=== PATIENT | female | born 1945 | race Caucasian/White ===

== ENCOUNTER 2019-06-15 15:15 | Inpatient (IN) | payer MEDICARE ==
[~2019-06-15] VITALS: Ht 157.5 cm; Wt 93.2 kg
[2019-06-15] MEDS ORDERED: NS IV 1000 ML 1,000 ML IV SCH (15:47)
[2019-06-15] MEDS ORDERED: NS (IVPB) 250 ML ONE (15:54)
[2019-06-15] MEDS ORDERED: VANCOMYCIN 1000 MG/VIAL ONE (15:54)
[2019-06-15] MEDS ORDERED: VANCOMYCIN INJECTION 1,000 MG in NS (IVPB) 250 ML IV SCH (16:00)
--- NOTE | 2019-06-15 16:00 | ED Integumentary General ---
General Chief Complaint: Skin/Wound Problems Stated Complaint: LEG PAIN Nursing Triage Note: PT HAS A RASH ON HER LEGS SINCE TUESDAY. URGENT CARE TODAY BUT SENT TO THE ER. DIARRHEA YESTERDAY AND TODAY. History of Present Illness Date Seen by Provider: Jun 15, 2019 Time Seen by Provider: 15:30 Initial Comments The patient is a 73-year-old female with a history of hypertension, paroxysmal atrial fibrillation on warfarin, venous stasis dermatitis of lower extremities with chronic pretibial ulcer of right leg, morbid obesity. The patient was sent over from the urgent care for further evaluation of warmth, erythema and swelling to her right knee and right lower thigh, tracking all the way up to the mid thigh level posteriorly. This has been present for the last 2 days only. Area is only very mildly tender. The patient separately notes some mild diarrhea yesterday, but not today. She also notes that she slid down the wall next to the toilet 2 days ago and scraped her back, but did not sustain any significant injury and is not hurting anywhere as a result of this fall and specifically denies hitting her head, neck or the affected right lower extremity. She ambulated in with a narrow, steady gait. She is in no distress. The patient reports no associated fevers, nausea or vomiting, cough, shortness of breath or chest pain, abdominal pain, flank pain, back pain, dysuria or hematuria, changes in bowel habits. Allergies and Home Medications Allergies Coded Allergies: No Known Drug Allergies (Unverified , 06/15/19) Patient Home Medication List Home Medication List Reviewed: Yes Review of Systems Review of Systems Constitutional: see HPI All Other Systems Reviewed Negative Unless Noted: Yes (Negative excepted noted.) Past Praodqv-Mdeeax-Hmyjbp Hx Past Med/Social Hx: Reviewed Nursing Past Med/Soc Hx Patient Social History Recent Foreign Travel: No Contact w/Someone Who Travel: No Recent Infectious Disease Expo: No Physical Abuse: No Sexual Abuse: No Mistreated: No Fear: No Family Medical History Reviewed Nursing Family Hx Physical Exam Vital Signs Vital Signs - First Documented 06/15/19 15:37 Temp 36.4 Pulse 99 Resp 20 B/P (MAP) 164/53 (90) Pulse Ox 98 Capillary Refill : Less Than 3 Seconds General Appearance: no apparent distress Comments This is an elderly female appearing nontoxic and in no acute distress. Head is normocephalic and atraumatic. Neck is supple and nontender. Oropharynx is moist. Lungs are clear to auscultation at all stations. There is a normal S1 and S2 without rubs or gallops and capillary refill is appropriate, less than 2 seconds globally. Abdomen is soft, nontender and nondistended. Skin is warm and dry without cyanosis, clubbing or edema. Psychiatrically, the patient demonstrates appropriate mood and affect and is alert. From a musculoskeletal standpoint, evaluation of the right lower extremity is remarkable for erythema and swelling affecting the anterior knee and posterior knee, tracking up the posterior thigh to the level of the mid thigh on the right. No joint irritability to the knee or any other joint of the right lower extremity. No significant limitation in ranging of the right lower extremity at any joint. There is a large, chronicappearing ulceration to the mid pretibial region on the right. Patient states this looks about like it normally does. The right lower extremity is neurovascularly intact distally with strength 5 out of 5, sensation intact to light touch in all nerve distributions, DP and PT pulses 2+, capillary refill less than 2 seconds, foot warm and well-perfused. Progress/Results/Core Measures Results/Orders My Orders Orders - DALY AGEE MD Cbc With Automated Diff (06/15/19 15:35) Comprehensive Metabolic Panel (06/15/19 15:35) Erythrocyte Sedimentation Rate (06/15/19 15:35) Crp Fs (06/15/19 15:35) Fibrin Degradation Products (06/15/19 15:35) Knee 3 View Right (06/15/19 15:35) Tibia Fibula 2 View Right (06/15/19 15:44) Blood Culture (06/15/19 15:44) Lactic Acid Analyzer (06/15/19 15:44) Vancomycin Injection (Vancomycin Injecti (06/15/19 16:00) Ed Iv/Invasive Line Start (06/15/19 15:47) Ns Iv 1000 Ml (Sodium Chloride 0.9%) (06/15/19 15:47) Vancomycin Injection (Vancomycin Injecti (06/15/19 15:54) Ns (Ivpb) (Sodium Chloride 0.9%) (06/15/19 15:54) Protime With Inr (06/15/19 16:00) Partial Thromboplastin Time (06/15/19 16:00) Vital Signs/I&O 06/15/19 15:37 Temp 36.4 Pulse 99 Resp 20 B/P (MAP) 164/53 (90) Pulse Ox 98 Blood Pressure Mean: 90 Progress Progress Note : Time: 16:10 Progress Note Well-appearing 73-year-old female who presents for evaluation of an apparent rapidly progressive cellulitis of her right lower extremity about the knee and tracking superior to it over the thigh. Has been present for only 2 days and as noted is rather extensive. We will check labs and draw cultures and give IV fluids and a dose of vancomycin. We'll also check a d-dimer but would expect this to be elevated in the setting of infection. The patient will likely require venous Doppler ultrasound for rule out of DVT despite warfarin use, and especially if she is subtherapeutic. The patient will likely require admission. This is discussed with her and she and her understand and agree. Departure Impression Primary Impression: Cellulitis of right leg Disposition: ADMITTED INPATIENT Condition: Stable Departure-Patient Inst. Referrals: OMAR DEAN MD (PCP) Primary Care Physician DALY AGEE MD Jun 15, 2019 15:59
[2019-06-15 16:26] LABS: HEMATOCRIT 38 % (35-52); MEAN CORPUSCULAR HEMOGLOBIN 32 PG (25-34); MEAN CORPUSCULAR HGB CONC 34 G/DL (32-36); MEAN CORPUSCULAR VOLUME 94 FL (80-99); MEAN PLATELET VOLUME 9.2 FL (7.4-10.4); PLATELET COUNT 137 10^3/uL (130-400); RED CELL DISTRIBUTION WIDTH 13.4 % (10.0-14.5); WHITE BLOOD COUNT 9.1 10^3/uL (4.3-11.0)
[2019-06-15 16:27] LABS: BASOPHILS % (AUTO) 0 % (0-10); EOSINOPHILS % (AUTO) 0 % (0-10); LYMPHOCYTES # (AUTO) 0.8 X 10^3 (1.0-4.0); LYMPHOCYTES % (AUTO) 8 % (12-44); MONOCYTES # (AUTO) 0.8 X 10^3 (0.0-1.0); MONOCYTES % (AUTO) 9 % (0-12); NEUTROPHILS # (AUTO) 7.5 X 10^3 (1.8-7.8); NEUTROPHILS % (AUTO) 82 % (42-75)
--- NOTE | 2019-06-15 16:43 | Diagnostic Imaging Report ---
INDICATION: Redness and swelling in right knee. AP, oblique, and lateral views of the right knee are obtained. No fracture or acute bony abnormality is seen. There is no erosive bony lesion. There is osteophyte formation of the medial, lateral, and patellofemoral compartments of moderate severity. There are vascular calcifications noted. IMPRESSION: No acute bony abnormality. Underlying degenerative findings and vascular calcifications. Dictated by: Dictated on workstation # [id number]
--- NOTE | 2019-06-15 16:47 | Diagnostic Imaging Report ---
INDICATION: Right leg pain, swelling, redness. COMPARISON: None. EXAMINATION: Two views of the right tibia and fibula were obtained. FINDINGS: There is moderate soft tissue edema. No soft tissue gas or foreign body is seen. Venous calcifications are present within the soft tissues. There is no underlying fracture or dislocation. No radiographic evidence of osteomyelitis. Visualized articular surfaces are age-appropriate. IMPRESSION: 1. Soft tissue swelling without soft tissue gas or foreign body. 2. No fracture, dislocation or osteomyelitis. Dictated by: Dictated on workstation # [id number]
[2019-06-15 16:48] LABS: BAND NEUTROPHILS 8 %; BASOPHILS % (MANUAL) 0 %; EOSINOPHILS % (MANUAL) 0 %; LYMPHOCYTES % (MANUAL) 7 %; MONOCYTES % (MANUAL) 5 %; NEUTROPHILS % (MANUAL) 80 %
[2019-06-15 16:53] LABS: ALANINE AMINOTRANSFERASE 17 U/L (0-55); ALKALINE PHOSPHATASE 60 U/L (40-136); BUN/CREATININE RATIO 23; CALCIUM 9.3 MG/DL (8.5-10.1); CARBON DIOXIDE 23 MMOL/L (21-32); CHLORIDE 98 MMOL/L (98-107); CREATININE SERUM 0.74 MG/DL (0.60-1.30); GFR ESTIMATED > 60; GLUCOSE 117 MG/DL (70-105); POTASSIUM 3.4 MMOL/L (3.6-5.0); SODIUM 133 MMOL/L (135-145); TOTAL PROTEIN 7.4 GM/DL (6.4-8.2)
[2019-06-15 16:54] LABS: ALBUMIN 3.7 GM/DL (3.2-4.5)
[2019-06-15 16:56] LABS: ERYTHROCYTE SEDIMENTATION RATE 63 MM/HR (0-30)
[2019-06-15 17:00] LABS: FIBRIN DEGRADATION PRODUCTS 1.33 UG/ML (0.00-0.49); INR 1.6 (0.8-1.4); PROTHROMBIN TIME PATIENT 19.6 SEC (12.2-14.7)
[2019-06-15 19:48] VITALS: BP 123/59
[2019-06-15] MEDS ORDERED: VANCOMYCIN 1 GM/NS 250 ML IVPB IV NR ×2 (20:00)
--- NOTE | 2019-06-15 20:07 | NUR ---
CR 0.74; CR CL ~50; WT 93.2 KG; VANCO 1000 MG IV GIVEN IN ER; GIVE ADDITIONAL VANCO 1000 MG IV FOR 2000 MG VANCO BOLUS, THEN VANCO 1500 MG IV Q24H; TROUGH AFTER 3RD DOSE
[2019-06-15] MEDS ORDERED: ACETAMINOPHEN 325 MG TABLET PO PRN (20:15)
[2019-06-15] MEDS ORDERED: CATHETER FLUSH 10 ML SYR IV PRN (20:15)
[2019-06-15] MEDS ORDERED: ONDANSETRON 4 MG/2 ML (SDV) Z0FRAN IV PRN (20:15)
[2019-06-15] MEDS ORDERED: morphine INJ 4 MG/ML 1 ML (VIAL/SYRINGE) IV PRN (20:15)
[2019-06-15] MEDS: NS IV 1000 ML 1,000 ML IV SCH (20:19)
[2019-06-15] MEDS ORDERED: diphenhydrAMINE 25 MG TAB (BENADRYL) PO PRN (20:45)
[2019-06-15] MEDS ORDERED: DOCUSATE SODIUM 100 MG (COLACE) CAP PO PRN (20:45)
[2019-06-15] MEDS ORDERED: ALPRAZolam 0.25 MG (XANAX) TAB PO PRN (20:45)
[2019-06-15] MEDS ORDERED: ONDANSETRON 4 MG/2 ML (SDV) Z0FRAN IVP PRN (20:45)
[2019-06-15] MEDS ORDERED: ACETAMINOPHEN 500 MG TAB (TYLENOL) PO PRN (20:45)
[2019-06-15] MEDS ORDERED: MELATONIN 3 MG TABLET PO PRN (20:45)
[2019-06-15] MEDS ORDERED: LOPERAMIDE 2 MG (IMODIUM) TABLET PO PRN (20:45)
[2019-06-15] MEDS ORDERED: CALCIUM CARBONATE 500 MG (TUMS) TAB.CHEW PO PRN (20:45)
[2019-06-15] MEDS ORDERED: HYDROcodone/APAP 5 MG/325 MG (LORTAB) TAB PO PRN (20:45)
[2019-06-15] MEDS ORDERED: fentaNYL INJECTION 100 MCG/2 ML AMP IVP PRN (20:45)
[2019-06-15] MEDS ORDERED: PIPERACILLIN/TAZO 4.5 GM VIAL (ZOSYN) IV ONE (22:05)
[2019-06-15] MEDS ORDERED: NS (IVPB) 100 ML ONE (22:06)
--- NOTE | 2019-06-15 22:14 | NUR ---
CHACHA ACOSTA admitted to room 413-1, with an admitting diagnosis of right lower extremity cellulitis, on 06/15/19 from [facility] ed via private car, accompanied by .CHACHA ACOSTA introduced to surroundings, call light, bed controls, phone, TV, temperature control, lights, meal times, smoking policy, visitor policy, side rail policy, bathrooms and showers. Patient Rights given to patient in the handbook. CHACHA ACOSTA verbalizes understanding that [facility] is not responsible for the loss or damage to any personal effects or valuables that are kept in the patients possession during their hospitalization. The patient's plan of care was discussed with the patient, she verbalizes understanding & denies any questions at this time.
[2019-06-15] MEDS: SENNA W/DOCUSATE (SENOKOT S) TABLET PO SCH (22:23)
[2019-06-15] MEDS: PIPERACILLIN/TAZOBACTAM (BULK) 4.5 GM in NS (IVPB) 100 ML IV SCH (22:23)
[2019-06-15] MEDS: ENOXAPARIN 40 MG/0.4 ML (LOVENOX) SYR SC SCH (22:31)
[2019-06-15 23:55] VITALS: BP 116/52
--- NOTE | 2019-06-16 | NUR ---
pt reports Home medications: warfarin 5 mg every other day warfarin 6 mg on opposite days that the doesn't take the 5mg Cartia Xt 120mg daily
[2019-06-16 04:00] VITALS: BP 119/58
[2019-06-16 05:47] LABS: BASOPHILS % (AUTO) 0 % (0-10); EOSINOPHILS % (AUTO) 0 % (0-10); HEMATOCRIT 34 % (35-52); HEMOGLOBIN 11.3 G/DL (11.5-16.0); LYMPHOCYTES # (AUTO) 0.6 X 10^3 (1.0-4.0); LYMPHOCYTES % (AUTO) 11 % (12-44); MEAN CORPUSCULAR HEMOGLOBIN 31 PG (25-34); MEAN CORPUSCULAR HGB CONC 34 G/DL (32-36); MEAN CORPUSCULAR VOLUME 93 FL (80-99); MEAN PLATELET VOLUME 9.5 FL (7.4-10.4); MONOCYTES # (AUTO) 0.5 X 10^3 (0.0-1.0); MONOCYTES % (AUTO) 9 % (0-12); NEUTROPHILS # (AUTO) 4.8 X 10^3 (1.8-7.8); NEUTROPHILS % (AUTO) 80 % (42-75); PLATELET COUNT 124 10^3/uL (130-400); RED CELL DISTRIBUTION WIDTH 13.5 % (10.0-14.5)
[2019-06-16] MEDS ORDERED: PIPERACILLIN/TAZO 4.5 GM VIAL (ZOSYN) IV ONE (05:52)
[2019-06-16] MEDS ORDERED: NS (IVPB) 100 ML ONE (05:53)
[2019-06-16 05:56] LABS: INR 1.8 (0.8-1.4)
[2019-06-16 06:07] LABS: ALANINE AMINOTRANSFERASE 17 U/L (0-55); ALBUMIN 3.1 GM/DL (3.2-4.5); ALKALINE PHOSPHATASE 47 U/L (40-136); BUN/CREATININE RATIO 19; CARBON DIOXIDE 20 MMOL/L (21-32); CHLORIDE 109 MMOL/L (98-107); CREATININE SERUM 0.73 MG/DL (0.60-1.30); GFR ESTIMATED > 60; GLUCOSE 104 MG/DL (70-105); POTASSIUM 3.5 MMOL/L (3.6-5.0); SODIUM 138 MMOL/L (135-145)
[2019-06-16] MEDS: PIPERACILLIN/TAZOBACTAM (BULK) 4.5 GM in NS (IVPB) 100 ML IV SCH ×3 (06:13→20:09)
[2019-06-16 07:08] LABS: LYMPHOCYTES % (MANUAL) 9 %; MONOCYTES % (MANUAL) 4 %; NEUTROPHILS % (MANUAL) 87 %
[2019-06-16 07:58] VITALS: BP 123/58
[2019-06-16] MEDS: SENNA W/DOCUSATE (SENOKOT S) TABLET PO SCH ×3 (08:08→21:00)
[2019-06-16] MEDS ORDERED: WARF-48 PO (08:16)
[2019-06-16] MEDS ORDERED: WARF6TAB49 PO (08:16)
[2019-06-16] MEDS ORDERED: DILT120C53 PO (08:17)
[2019-06-16] MEDS ORDERED: GLUC100016 PO (08:18)
[2019-06-16] MEDS ORDERED: CALC600T12 PO (08:19)
--- NOTE | 2019-06-16 09:34 | Consultation - Surgery ---
SHAJI COOL MED STUDENT 06/16/19 0934: History of Present Illness History of Present Illness Patient Consulted On(emani/time) 06/16/19 09:28 Date Seen by Provider: Jun 16, 2019 Time Seen by Provider: 09:00 History of Present Illness Ms. Gar was seen today due to cellulitis of her right leg. She reports having a rash with warmth and erythema beginning this past Tuesday, which started on her right knee and extended up the back of her right leg. She reports having low grade fevers and fatigue from Tuesday to Tuesday, as well as diarrhea on , but denies having any of those symptoms now. Reports the rash has decreased in size and warmth over the past day. Allergies and Home Medications Allergies Coded Allergies: No Known Drug Allergies (Unverified , 06/15/19) Home Medications Calcium Carbonate 600 Mg Tablet, 600 MG PO BID, (Reported) Diltiazem HCl 120 Mg Cap.er.24h, 120 MG PO DAILY, (Reported) Glucosamine Sulfate 2Kcl 1,000 Mg Tablet, 1,000 MG PO BID, (Reported) Warfarin Sodium 5 Mg Tablet, 5 MG PO Q48H, (Reported) ALTERNATES WITH 6MG Warfarin Sodium 6 Mg Tablet, 6 MG PO Q48H, (Reported) ALTERNATES WITH 5MG Past Blbbolw-Fcnehf-Lzhnfb Hx Patient Social History Alcohol Use: Denies Use Recreational Drug Use: No Smoking Status: Never a Smoker 2nd Hand Smoke Exposure: No Recent Foreign Travel: No Contact w/Someone Who Travel: No Recent Infectious Disease Expo: No Recent Hopitalizations: No Immunizations Up To Date Date of Pneumonia Vaccine: Jun 27, 2017 Seasonal Allergies Seasonal Allergies: No Surgeries History of Surgeries: Yes (OOPHORECTOMY) Surgeries: Gallbladder Respiratory History of Respiratory Disorde: No Cardiovascular History of Cardiac Disorders: Yes Cardiac Disorders: Atrial Fibrillation, Hypertension Neurological History of Neurological Disord: No Reproductive System Sexually Transmitted Disease: No Genitourinary History of Genitourinary Disor: No Gastrointestinal History of Gastrointestinal Di: No Musculoskeletal History of Musculoskeletal Dis: No Endocrine History of Endocrine Disorders: No HEENT History of HEENT Disorders: No Cancer History of Cancer: No Psychosocial History of Psychiatric Problem: No Integumentary History of Skin or Integumenta: No Blood Transfusions History of Blood Disorders: No Family Medical History Family Medial History: Aortic aneurysm G8 BROTHER Cardiovascular disease 19 MOTHER FH: uterine cancer G8 SISTER Myocardial infarction 19 FATHER G8 SISTER Review of Systems-General Constitutional: No chills; fever (not today), weakness (none today) EENTM: nose congestion (attributes to allergies), throat pain (attributes to allergies) Respiratory: No cough, No short of breath Cardiovascular: No chest pain; palpitations (afib, heart skipping sensation); No syncope Gastrointestinal: No abdominal pain, No constipation; diarrhea (none today); No melena, No nausea Genitourinary: No dysuria, No hematuria Skin: pruritus (R stasis dermatitis), rash (R knee and thigh warmth and erythema) Psychiatric/Neurological: Headache, Numbness (left hallux numb since injury as a child); Denies Paresthesia, Denies Tingling Physical Exam-General Problems Physical Exam Vital Signs Vital Signs - First Documented 06/15/19 06/15/19 15:37 18:15 Temp 36.4 Pulse 99 Resp 20 B/P (MAP) 164/53 (90) Pulse Ox 98 O2 Delivery Room Air Capillary Refill : Less Than 3 Seconds General Appearance: no apparent distress, obese HEENT: PERRL/EOMI; No scleral icterus (R), No scleral icterus (L), No pale conjunctivae (R), No pale conjunctivae (L) Neck: non-tender, supple, normal inspection Respiratory: lungs clear, normal breath sounds, no respiratory distress, no ac cessory muscle use Cardiovascular: normal peripheral pulses, systolic murmur, irregularly irregular Peripheral Pulses: 2+ Dorsalis Pedis (R), 2+ Left Dors-Pedis (L), 2+ Radial Pulses (R), 2+ Radial Pulses (L) Gastrointestinal: normal bowel sounds, non tender, soft, no organomegaly Extremities: non-tender, no calf tenderness, inflammation (warmth and erythema of R knee and thigh), pedal edema Neurologic/Psychiatric: alert, normal mood/affect Skin: other (stasis dermatitis of R leg near ankle), rash (warmth and erythema of right knee and thigh) Data Review Labs Laboratory Tests 06/15/19 16:15: White Blood Count 9.1, Red Blood Count 4.08L, Hemoglobin 13.0, Hematocrit 38, Mean Corpuscular Volume 94, Mean Corpuscular Hemoglobin 32, Mean Corpuscular Hemoglobin Concent 34, Red Cell Distribution Width 13.4, Platelet Count 137, Mean Platelet Volume 9.2, Neutrophils (%) (Auto) 82H, Lymphocytes (%) (Auto) 8L, Monocytes (%) (Auto) 9, Eosinophils (%) (Auto) 0, Basophils (%) (Auto) 0, Neutrophils # (Auto) 7.5, Lymphocytes # (Auto) 0.8L, Monocytes # (Auto) 0.8, Eosinophils # (Auto) 0.0, Basophils # (Auto) 0.0, Neutrophils % (Manual) 80, Lymphocytes % (Manual) 7, Monocytes % (Manual) 5, Eosinophils % (Manual) 0, Basophils % (Manual) 0, Band Neutrophils 8, Erythrocyte Sedimentation Rate 63H, Sodium Level 133L, Potassium Level 3.4L, Chloride Level 98, Carbon Dioxide Level 23, Anion Gap 12, Blood Urea Nitrogen 17, Creatinine 0.74, Estimat Glomerular Filtration Rate > 60, BUN/Creatinine Ratio 23, Glucose Level 117H, Lactic Acid Level 1.10, Calcium Level 9.3, Corrected Calcium 9.5, Total Bilirubin 1.0, Aspartate Amino Transf (AST/SGOT) 27, Alanine Aminotransferase (ALT/SGPT) 17, Alkaline Phosphatase 60, C-Reactive Protein 13.98H, Total Protein 7.4, Albumin 3.7 06/15/19 16:19: Prothrombin Time 19.6H, INR Comment 1.6H, Activated Partial Thromboplast Time 50H, D-Dimer 1.33H 06/16/19 05:08: White Blood Count 6.0, Red Blood Count 3.61L, Hemoglobin 11.3L, Hematocrit 34L, Mean Corpuscular Volume 93, Mean Corpuscular Hemoglobin 31, Mean Corpuscular Hemoglobin Concent 34, Red Cell Distribution Width 13.5, Platelet Count 124L, Mean Platelet Volume 9.5, Neutrophils (%) (Auto) 80H, Lymphocytes (%) (Auto) 11L , Monocytes (%) (Auto) 9, Eosinophils (%) (Auto) 0, Basophils (%) (Auto) 0, Neutrophils # (Auto) 4.8, Lymphocytes # (Auto) 0.6L, Monocytes # (Auto) 0.5, Eosinophils # (Auto) 0.0, Basophils # (Auto) 0.0, Neutrophils % (Manual) 87, Lymphocytes % (Manual) 9, Monocytes % (Manual) 4 06/16/19 05:28: Sodium Level 138, Potassium Level 3.5L, Chloride Level 109H, Carbon Dioxide Level 20L, Anion Gap 9, Blood Urea Nitrogen 14, Creatinine 0.73, Estimat Glomerular Filtration Rate > 60, BUN/Creatinine Ratio 19, Glucose Level 104, Calcium Level 8.0L, Corrected Calcium 8.7, Total Bilirubin 1.0, Aspartate Amino Transf (AST/SGOT) 21, Alanine Aminotransferase (ALT/SGPT) 17, Alkaline Phosphatase 47, Total Protein 6.0L, Albumin 3.1L, Prothrombin Time 22.0H, INR Comment 1.8H Assessment/Plan Assessment/Plan Assessment/Plan R leg cellulitis Afib Monitor cellulitis for changes in symptoms. Patient reports it is improvingwith current management, will continue to follow and consider surgical intervention if symptoms worsen. Clinical Quality Measures DVT/VTE Risk/Contraindication: Risk Factor Score Per Nursin RFS Level Per Nursing on Admit: 4+=Very High Contraindications-Mechi: Other *list below* Other: cellulitis legs LENNY SANTANA DO 06/16/19 1023: History of Present Illness History of Present Illness History of Present Illness Consult requested by Dr. Mack for cellulitis right leg. Patient is a 73 year old female who had rash develop last 4 days ago that continue to worsen. From the right knee up and to the back of leg. It was warm to touch. She states she was having low grade fevers and fatigue. Nothing was making it better and nothing she knows of made worse. She does have chronic venous stasis changes to the distal right lower extremity. Since admission, she states that the leg is starting to feel better, not as warm to touch in this area. Denies n/v fever sweats chills shortness of breath or chest pain. Has had some diarrhea. Allergies and Home Medications Allergies Coded Allergies: No Known Drug Allergies (Unverified , 06/15/19) Home Medications Calcium Carbonate 600 Mg Tablet, 600 MG PO BID, (Reported) Diltiazem HCl 120 Mg Cap.er.24h, 120 MG PO DAILY, (Reported) Glucosamine Sulfate 2Kcl 1,000 Mg Tablet, 1,000 MG PO BID, (Reported) Warfarin Sodium 5 Mg Tablet, 5 MG PO Q48H, (Reported) ALTERNATES WITH 6MG Warfarin Sodium 6 Mg Tablet, 6 MG PO Q48H, (Reported) ALTERNATES WITH 5MG Patient Home Medication List Home Medication List Reviewed: Yes Past Pqxsabt-Yaefwb-Yagxpr Hx Reviewed Nursing Assessment Reviewed/Agree w Nursing PMH: Yes Family Medical History Significant Family History: No Pertinent Family Hx Family Medial History: Aortic aneurysm G8 BROTHER Cardiovascular disease 19 MOTHER FH: uterine cancer G8 SISTER Myocardial infarction 19 FATHER G8 SISTER Review of Systems-General Constitutional: fever (not today) Respiratory: no symptoms reported Cardiovascular: no symptoms reported Gastrointestinal: no symptoms reported, diarrhea (none today) Genitourinary: no symptoms reported Musculoskeletal: no symptoms reported Skin: see HPI Psychiatric/Neurological: Headache Physical Exam-General Problems Physical Exam General Appearance: no apparent distress HEENT: PERRL/EOMI Neck: non-tender, supple, normal inspection Respiratory: chest non-tender, lungs clear, no respiratory distress, no accessory muscle use Cardiovascular: normal peripheral pulses, irregularly irregular Gastrointestinal: normal bowel sounds, soft, no organomegaly Rectal: deferred Back: normal inspection, no CVA tenderness Extremities: non-tender, no calf tenderness, pedal edema, other (chronic earl nges to the right distal lower extremity, erythematous changes to the proximal right lower extremity, warm to touch) 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, alert, normal mood/affect Skin: other (stasis dermatitis of R leg near ankle), rash (warmth and erythema of right knee and thigh) Lymphatic: no adenopathy Assessment/Plan Assessment/Plan Assessment/Plan right lower extremity cellulits chronic venous stasis right lower extremity afib continue Iv abx continue to monitor for improvement venous u/s of rle already ordered no surgical intervention, will follow Supervisory-Addendum Brief Verification & Attestation Participated in pt care: history, MDM, physical Personally performed: exam, history, MDM, supervision of care Care discussed with: Medical Student Procedures: n/a Results interpretation: Verified all documentation Verification and Attestation of Medical Student E/M Service A medical student performed and documented this service in my presence. I reviewed and verified all information documented by the medical student and made modifications to such information, when appropriate. I personally performed the physical exam and medical decision making. Lenny Santana, Jun 16, 2019,10:27 SHAJI COOL MED STUDENT Jun 16, 2019 09:34 LENNY SANTANA DO Jun 16, 2019 10:23
[2019-06-16] MEDS: NS IV 1000 ML 1,000 ML IV SCH (10:01)
[2019-06-16 12:00] VITALS: BP 127/58
--- NOTE | 2019-06-16 12:23 | History & Physical-Hospitalist ---
History of Present Illness HPI/Chief Complaint CC: Left leg cellulitis with venous stasis dermatitis chronically HPI: This is a 73yoWF clinic patient of Dr Guerrero transferring to Dr Crawley who has h/o chronic venous stasis dermatitis with chronic left leg ulcer who presents to the [facility] ER with left leg pain and redness upstream from her chronic ulceration. Patient was deemed stable and not septic but in need of IV abx. Patient remains on Coumadin and her INR was subtherapeutic at time of presentation and left leg has no evidence of DVT and she is on chronic i ndefinite OAC so she will be bridged with Lovenox and restarted on Coumadin until therapeutic. Dr Magdaleno has been consulted. Source: patient, family, RN/MD Exam Limitations: no limitations Date Seen 06/16/19 Time Seen by a Provider: 11:30 Attending Physician Sisi Kong Katrina M MD Referring Physician Date of Admission Jun 15, 2019 at 17:50 Home Medications & Allergies Home Medications Reviewed patient Home Medication Reconciliation performed by pharmacy medication reconciliations electrocardiographic technician and/or nursing. Patients Allergies have been reviewed. Allergies Allergies Coded Allergies No Known Drug Allergies ([id number]/20/19) Past Tufvyuq-Xrljin-Zttvzh Hx Past Med/Social Hx: Reviewed Nursing Past Med/Soc Hx, Reviewed and Corrections made Patient Social History Marrital Status: Employed/Student: retired Alcohol Use: Denies Use Recreational Drug Use: No Smoking Status: Never a Smoker 2nd Hand Smoke Exposure: No Recent Foreign Travel: No Contact w/other who traveled: No Recent Hopitalizations: No Recent Infectious Disease Expo: No Immunizations Up To Date Date of Pneumonia Vaccine: Jun 27, 2017 Seasonal Allergies Seasonal Allergies: No Past Medical History Surgeries: Gallbladder Cardiac: Atrial Fibrillation, Hypertension Sexually Transmitted Disease: No History of Blood Disorders: No Family History Reviewed Nursing Family Hx Aortic aneurysm G8 BROTHER Cardiovascular disease 19 MOTHER FH: uterine cancer G8 SISTER Myocardial infarction 19 FATHER G8 SISTER No Pertinent Family Hx Review of Systems Constitutional: see HPI, weakness EENTM: no symptoms reported Respiratory: no symptoms reported Cardiovascular: no symptoms reported Gastrointestinal: no symptoms reported Genitourinary: no symptoms reported Musculoskeletal: no symptoms reported Skin: see HPI, change in color, rash Psychiatric/Neurological: No Symptoms Reported All Other Systems Reviewed Negative Unless Noted: Yes Physical Exam Physical Exam Vital Signs Vital Signs - First Documented 06/15/19 06/15/19 15:37 18:15 Temp 36.4 Pulse 99 Resp 20 B/P (MAP) 164/53 (90) Pulse Ox 98 O2 Delivery Room Air Capillary Refill : Less Than 3 SecondsLess Than 3 Seconds Height, Weight, BMI Height: '" Weight: lbs. oz. kg; 37.57 BMI Method: General Appearance: No Apparent Distress, WD/WN, Chronically ill, Obese Eyes: Right Eye Normal Inspection, Right Eye PERRL HEENT: PERRL/EOMI, Normal ENT Inspection, Pharynx Normal, Moist Mucous Membranes Neck: Full Range of Motion, Normal Inspection, Non Tender Respiratory: Chest Non Tender, Lungs Clear, Normal Breath Sounds, No Accessory Muscle Use, No Respiratory Distress Cardiovascular: Regular Rate, Rhythm, No Edema, No Gallop, No JVD, No Murmur, Normal Peripheral Pulses Gastrointestinal: Normal Bowel Sounds, No Organomegaly, No Pulsatile Mass, Non Tender, Soft Back: Normal Inspection, No CVA Tenderness, No Vertebral Tenderness Extremity: Normal Capillary Refill, Normal Inspection, Normal Range of Motion, Non Tender, No Calf Tenderness, No Pedal Edema Neurologic/Psychiatric: Alert, Oriented x3, No Motor/Sensory Deficits, Normal Mood/Affect, 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 Assessment/Plan Admission Diagnosis Assessment: Left leg cellulitis complicated with h/o chronic lower extremity venous stasis dermatitis with chronic ulceration AF OAC with Coumadin Plan: Monitor labs Home meds INR in am Lovenox bridge IV abx Admission Status: Observation Diagnosis/Problems Diagnosis/Problems (1) Cellulitis of right leg Status: Acute (2) Venous stasis dermatitis of both lower extremities (3) Anticoagulated on Coumadin (4) Subtherapeutic anticoagulation (5) Atrial fibrillation Clinical Quality Measures DVT/VTE Risk/Contraindication: Risk Factor Score Per Nursin RFS Level Per Nursing on Admit: 4+=Very High Contraindications-Mechi: Other *list below* Other: cellulitis legs SISI KONG DO Jun 16, 2019 12:23
--- NOTE | 2019-06-16 15:39 | Consultation-Cardiology ---
HPI-Cardiology Cardiology Consultation: Date of Consultation 06/16/19 Date of Admission Attending Physician Sisi Mack DO Admitting Physician Aislinn Guerrero MD Consulting Physician Mauri TRIMBLE MD HPI: Time Seen by a Provider: 13:30 Chief Complaint: Atrial fibrillation This is a 73-year-old lady who has history of hypertension, paroxysmal atrial fibrillation on Coumadin, venous stasis dermatitis, chronic right lower extremity ulcer, obesity. She was sent to [facility] for possible cellulitis of the right lower extremity for the last couple of days. She also has history of mild diarrhea. She denies any cardiac symptoms. She denies chest pain, shortness of breath, syncope, near-syncope or palpitations. She had subtherapeutic INR. Mildly elevated d-dimer. Review of Systems-Cardiology Review of Systems Constitutional: As described under HPI; No As described under HPI, No no symptoms reported, No chills, No fever, No lightheadedness Eyes: No As described under HPI, No no symptoms reported, No blindness, No b lurred vision, No contact lenses, No drainage, No decreased acuity, No foreign body sensation, No pain, No vision change Ears/Nose/Throat: No As described under HPI, No no symptoms reported, No chronic hearing loss, No ear discharge, No ear pain, No nasal drainage, No ulcerations Respiratory: No no symptoms reported; As described under HPI; No As described under HPI, No cough, No orthopnea, No shortness of breath, No SOB with excertion Cardiovascular: No no symptoms reported; As described under HPI; No As described under HPI, No chest pain, No edema, No irregular heart rate, No lightheadedness, No palpitations Gastrointestinal: No no symptoms reported, No As described under HPI, No abdomen distended, No abdominal pain, No blood streaked bowels, No constipation, No diarrhea, No nausea, No vomiting; nausea/vomiting/diarrhea; No stool coloration changes Genitourinary: No As described under HPI, No burning, No dysuria, No discharge, No frequency, No flank pain, No hematuria, No urgency : Yes : No Skin: No rash, No skin related problems, No ulcerations; rash on exposed areas Psychiatric/Neurological: No anxiety, No depression, No seizure, No focal weakness, No syncope Hematologic: No bleeding abnormalities All Other Systems Reviewed Negative Unless Noted: Yes [id number] Hx Patient Social History Marrital Status: Employed/Student: retired Alcohol Use: Denies Use Recreational Drug Use: No Smoking Status: Never a Smoker 2nd Hand Smoke Exposure: No Recent Foreign Travel: No Recent Infectious Disease Expo: No Hospitalization with Isolation: Denies Immunizations Up To Date Date of Pneumonia Vaccine: Jun 27, 2017 Past Medical History PMH As described under Assessment. Family Medical History Family History: Aortic aneurysm G8 BROTHER Cardiovascular disease 19 MOTHER FH: uterine cancer G8 SISTER Myocardial infarction 19 FATHER G8 SISTER Allergies and Home Medications Allergies Coded Allergies: No Known Drug Allergies (Unverified , 06/15/19) Home Medications Calcium Carbonate 600 Mg Tablet, 600 MG PO BID, (Reported) Diltiazem HCl 120 Mg Cap.er.24h, 120 MG PO DAILY, (Reported) Glucosamine Sulfate 2Kcl 1,000 Mg Tablet, 1,000 MG PO BID, (Reported) Warfarin Sodium 5 Mg Tablet, 5 MG PO Q48H, (Reported) ALTERNATES WITH 6MG Warfarin Sodium 6 Mg Tablet, 6 MG PO Q48H, (Reported) ALTERNATES WITH 5MG Patient Home Medication List Home Medication List Reviewed: Yes Physical Exam-Cardiology Physical Exam Vital Signs/I&O 06/16/19 06/16/19 06/16/19 06/16/19 04:00 07:58 08:00 12:00 Temp 37.4 36.6 36.6 Pulse 85 87 76 Resp 18 20 18 B/P (MAP) 119/58 (78) 123/58 (79) 127/58 (81) Pulse Ox 94 93 96 O2 Delivery Room Air Room Air Room Air Room Air 06/16/19 00:00 Intake Total 310 ml Balance 310 ml Capillary Refill : Less Than 3 SecondsLess Than 3 Seconds Constitutional: appears stated age; No apparent distress; well-developed, well- nourished HEENT: PERRL; No discharge; hearing is well preserved, oral hygience is good; No ulceration, No xanthelasmas are seen Neck: No carotid bruit; carotid pulses are 2 + bilaterally Respiratory: chest is bilaterally symmetric, lungs clear to auscultation Cardiovascular: regular rate-rhythm, S1 and S2 Gastrointestinal: soft, audible bowel sounds; No spleenomegaly Rectal: deferred Extremities: No clubbing, No cyanosis, No significant edema; tenderness, wound (right lower extremity.) Neurologic/Psychiatric: no motor/sensory deficits, alert, normal mood/affect, oriented x 3, power is 5/5 both on sides Skin: No rash, No ulcerations Lymphatic: no adenopathy Data Review Labs Laboratory Tests 06/15/19 16:15: White Blood Count 9.1, Red Blood Count 4.08L, Hemoglobin 13.0, Hematocrit 38, Mean Corpuscular Volume 94, Mean Corpuscular Hemoglobin 32, Mean Corpuscular Hemoglobin Concent 34, Red Cell Distribution Width 13.4, Platelet Count 137, Mean Platelet Volume 9.2, Neutrophils (%) (Auto) 82H, Lymphocytes (%) (Auto) 8L, Monocytes (%) (Auto) 9, Eosinophils (%) (Auto) 0, Basophils (%) (Auto) 0, Neutrophils # (Auto) 7.5, Lymphocytes # (Auto) 0.8L, Monocytes # (Auto) 0.8, Eosinophils # (Auto) 0.0, Basophils # (Auto) 0.0, Neutrophils % (Manual) 80, Lymphocytes % (Manual) 7, Monocytes % (Manual) 5, Eosinophils % (Manual) 0, Basophils % (Manual) 0, Band Neutrophils 8, Erythrocyte Sedimentation Rate 63H, Sodium Level 133L, Potassium Level 3.4L, Chloride Level 98, Carbon Dioxide Level 23, Anion Gap 12, Blood Urea Nitrogen 17, Creatinine 0.74, Estimat Glomerular Filtration Rate > 60, BUN/Creatinine Ratio 23, Glucose Level 117H, Lactic Acid Level 1.10, Calcium Level 9.3, Corrected Calcium 9.5, Total Bilirubin 1.0, Aspartate Amino Transf (AST/SGOT) 27, Alanine Aminotransferase (ALT/SGPT) 17, Alkaline Phosphatase 60, C-Reactive Protein 13.98H, Total Protein 7.4, Albumin 3.7 06/15/19 16:19: Prothrombin Time 19.6H, INR Comment 1.6H, Activated Partial Thromboplast Time 50H, D-Dimer 1.33H 06/16/19 05:08: White Blood Count 6.0, Red Blood Count 3.61L, Hemoglobin 11.3L, Hematocrit 34L, Mean Corpuscular Volume 93, Mean Corpuscular Hemoglobin 31, Mean Corpuscular Hemoglobin Concent 34, Red Cell Distribution Width 13.5, Platelet Count 124L, Mean Platelet Volume 9.5, Neutrophils (%) (Auto) 80H, Lymphocytes (%) (Auto) 11L , Monocytes (%) (Auto) 9, Eosinophils (%) (Auto) 0, Basophils (%) (Auto) 0, Neutrophils # (Auto) 4.8, Lymphocytes # (Auto) 0.6L, Monocytes # (Auto) 0.5, Eosinophils # (Auto) 0.0, Basophils # (Auto) 0.0, Neutrophils % (Manual) 87, Lymphocytes % (Manual) 9, Monocytes % (Manual) 4 06/16/19 05:28: Sodium Level 138, Potassium Level 3.5L, Chloride Level 109H, Carbon Dioxide Level 20L, Anion Gap 9, Blood Urea Nitrogen 14, Creatinine 0.73, Estimat Glomerular Filtration Rate > 60, BUN/Creatinine Ratio 19, Glucose Level 104, Calcium Level 8.0L, Corrected Calcium 8.7, Total Bilirubin 1.0, Aspartate Amino Transf (AST/SGOT) 21, Alanine Aminotransferase (ALT/SGPT) 17, Alkaline Phosphatase 47, Total Protein 6.0L, Albumin 3.1L, Prothrombin Time 22.0H, INR Comment 1.8H A/P-Cardiology Assessment/Admission Diagnosis Paroxysmal atrial fibrillation, Subtherapeutic INR, right lower extremity cellulitis, Elevated d-dimer, Venous stasis dermatitis, Nonhealing right lower limb ulcer Plan Paroxysmal atrial fibrillation, Lovenox bridge. Currently in sinus rhythm. Continue outpatient medical therapy. Subtherapeutic INR, low molecular weight heparin. right lower extremity cellulitis, defer to the primary team. Elevated d-dimer, subcutaneous to take INR, DVT could be a possibility. May require venous Dopplers. However treat with low molecular weight heparin. Venous stasis dermatitis, Nonhealing right lower limb ulcer, I would suggest doing bilateral lower extremity arterial Dopplers as well to rule out significant PAD as a cause of nonhealing ulcer. Thank you for your consultation. Please call me if you have any questions. Aaron Trimble MD, FACP, FACC, FSCAI, FHRS, CCDS Interventional Cardiology Cardiac Electrophysiology Vascular Medicine and Endovascular Interventions Clinical Quality Measures DVT/VTE Risk/Contraindication: Risk Factor Score Per Nursin RFS Level Per Nursing on Admit: 4+=Very High Contraindications-Mechi: Other *list below* Other: cellulitis legs Mauri TRIMBLE MD Jun 16, 2019 15:39
[2019-06-16 16:29] VITALS: BP 118/70
[2019-06-16] MEDS ORDERED: KCL 10 MEQ TAB (MICRO K) PO ONE (16:45)
--- NOTE | 2019-06-16 17:05 | NUR ---
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
[2019-06-16] MEDS: VANCOMYCIN 1500 MG/NS 500 ML IVPB IV SCH ×2 (17:23)
[2019-06-16] MEDS ORDERED: warFARin 5 MG (COUMADIN) TAB PO SCH (18:00)
[2019-06-16 19:45] VITALS: BP 124/58
[2019-06-16] MEDS: ENOXAPARIN 40 MG/0.4 ML (LOVENOX) SYR SC SCH (20:08)
[2019-06-16] MEDS: CALCIUM CARBONATE 600 MG (CALCARB) TAB PO SCH (20:08)
[2019-06-16 23:53] VITALS: BP 125/56
[2019-06-17 04:24] VITALS: BP 116/82
[2019-06-17 05:56] LABS: BASOPHILS % (AUTO) 0 % (0-10); EOSINOPHILS % (AUTO) 1 % (0-10); HEMATOCRIT 33 % (35-52); HEMOGLOBIN 11.2 G/DL (11.5-16.0); LYMPHOCYTES # (AUTO) 0.7 X 10^3 (1.0-4.0); LYMPHOCYTES % (AUTO) 20 % (12-44); MEAN CORPUSCULAR HEMOGLOBIN 32 PG (25-34); MEAN CORPUSCULAR HGB CONC 34 G/DL (32-36); MEAN CORPUSCULAR VOLUME 93 FL (80-99); MEAN PLATELET VOLUME 9.9 FL (7.4-10.4); MONOCYTES # (AUTO) 0.4 X 10^3 (0.0-1.0); MONOCYTES % (AUTO) 10 % (0-12); NEUTROPHILS # (AUTO) 2.6 X 10^3 (1.8-7.8); NEUTROPHILS % (AUTO) 69 % (42-75); PLATELET COUNT 119 10^3/uL (130-400); RED CELL DISTRIBUTION WIDTH 13.4 % (10.0-14.5); WHITE BLOOD COUNT 3.8 10^3/uL (4.3-11.0)
[2019-06-17] MEDS: KCL 10 MEQ TAB (MICRO K) PO SCH (05:57)
[2019-06-17] MEDS: PIPERACILLIN/TAZOBACTAM (BULK) 4.5 GM in NS (IVPB) 100 ML IV SCH ×3 (05:57→20:36)
[2019-06-17 06:03] LABS: INR 2.1 (0.8-1.4); PROTHROMBIN TIME PATIENT 24.2 SEC (12.2-14.7)
[2019-06-17 06:13] LABS: ALANINE AMINOTRANSFERASE 16 U/L (0-55); ALKALINE PHOSPHATASE 44 U/L (40-136); BILIRUBIN,TOTAL 1.1 MG/DL (0.1-1.0); BUN/CREATININE RATIO 18; CALCIUM 8.2 MG/DL (8.5-10.1); CARBON DIOXIDE 18 MMOL/L (21-32); CHLORIDE 111 MMOL/L (98-107); CREATININE SERUM 0.66 MG/DL (0.60-1.30); GFR ESTIMATED > 60; GLUCOSE 88 MG/DL (70-105); POTASSIUM 3.3 MMOL/L (3.6-5.0); SODIUM 139 MMOL/L (135-145); TOTAL PROTEIN 5.8 GM/DL (6.4-8.2)
[2019-06-17 08:00] VITALS: BP 136/85
--- NOTE | 2019-06-17 08:14 | Progress Note - Surgery ---
SHAJI COOL MED STUDENT 06/17/19 0814: Subjective Date Seen by a Provider: Jun 17, 2019 Time Seen by a Provider: 07:20 Subjective/Events-last exam Ms. Gar reports that her leg has continued to improve since yesterday, reports that the area of erythema has decreased in size and the swelling in her R leg has decreased as well. She reports having SOB and fluid in her lungs last night, was taken off IV fluids and has no SOB now. Denies having any fevers or chills. No recurrence of diarrhea or fatigue. Review of Systems General: No Chills, No Fatigue HEENT: No Sinus Congestion, No Post Nasal Drip, No Sore Throat Pulmonary: Dyspnea; No Cough Cardiovascular: No: Chest Pain, Lt Headedness Gastrointestinal: No: Nausea, Vomiting, Abdominal Pain, Diarrhea, Constipation, Melena Genitourinary: No Dysuria, No Hematuria Neurological: No: Numbness, Other (paresthesias) Focused Exam Lactate Level 06/15/19 16:15: Lactic Acid Level 1.10 Objective Exam Vital Signs Date Time Temp Pulse Resp B/P (MAP) Pulse Ox O2 Delivery O2 Flow Rate FiO2 06/17/19 04:24 36.9 93 18 116/82 (93) 92 Room Air 06/16/19 23:53 37.4 96 16 125/56 (79) 94 Room Air 06/16/19 20:00 Room Air 06/16/19 19:45 36.8 94 20 124/58 (80) 97 Room Air 06/16/19 16:29 36.8 83 20 118/70 (86) 97 Room Air 06/16/19 12:00 36.6 76 18 127/58 (81) 96 Room Air I & O 06/17/19 07:00 Intake Total 5285 ml Balance 5285 ml Capillary Refill : Less Than 3 SecondsLess Than 3 Seconds General Appearance: No Apparent Distress, Chronically ill, Obese HEENT: PERRL/EOMI; No Pale Conjunctivae (L), No Pale Conjunctivae (R), No Scleral Icterus (L), No Scleral Icterus (R) Neck: Normal Inspection, Non Tender Respiratory: No Accessory Muscle Use, No Respiratory Distress, Crackles, Wheezing Cardiovascular: Regular Rate, Rhythm, No Edema, No Gallop, No Murmur, Normal Peripheral Pulses Peripheral Pulses: 2+ Dorsalis Pedis (R), 2+ Left Dors-Pedis (L), 2+ Radial Pulses (R), 2+ Radial Pulses (L) Gastrointestinal: normal bowel sounds, soft, no organomegaly Extremity: Non Tender, No Calf Tenderness, No Pedal Edema, Inflammation (decreased inflammation around right knee), Pedal Edema (decreased RLE edema), Swelling (decreased swelling around R knee) Neurologic/Psychiatric: Alert, Oriented x3, Normal Mood/Affect Skin: Normal Color, Warm/Dry, Rash (right leg thigh with erythema and chronic venous stasis dermatitis lower leg) Lymphatic: No Adenopathy Results Lab Laboratory Tests 06/17/19 04:54: White Blood Count 3.8L, Red Blood Count 3.55L, Hemoglobin 11.2L, Hematocrit 33L, Mean Corpuscular Volume 93, Mean Corpuscular Hemoglobin 32, Mean Corpuscular Hemoglobin Concent 34, Red Cell Distribution Width 13.4, Platelet Count 119L, Mean Platelet Volume 9.9, Neutrophils (%) (Auto) 69, Lymphocytes (%) (Auto) 20, Monocytes (%) (Auto) 10, Eosinophils (%) (Auto) 1, Basophils (%) (Auto) 0, Neutrophils # (Auto) 2.6, Lymphocytes # (Auto) 0.7L, Monocytes # (Auto) 0.4, Eosinophils # (Auto) 0.0, Basophils # (Auto) 0.0, Prothrombin Time 24.2H, INR Comment 2.1H, Sodium Level 139, Potassium Level 3.3L, Chloride Level 111H, Carbo n Dioxide Level 18L, Anion Gap 10, Blood Urea Nitrogen 12, Creatinine 0.66, Estimat Glomerular Filtration Rate > 60, BUN/Creatinine Ratio 18, Glucose Level 88, Calcium Level 8.2L, Corrected Calcium 9.0, Total Bilirubin 1.1H, Aspartate Amino Transf (AST/SGOT) 21, Alanine Aminotransferase (ALT/SGPT) 16, Alkaline Phosphatase 44, Total Protein 5.8L, Albumin 3.0L Assessment/Plan Assessment/Plan Assessment/Plan RLE cellulitis chronic shawna stasis RLE Afib Continue IV abx, monitor for continued improvement. No surgical intervention, will follow. Clinical Quality Measures DVT/VTE Risk/Contraindication: Risk Factor Score Per Nursin RFS Level Per Nursing on Admit: 4+=Very High Contraindications-Mechi: Other *list below* Other: cellulitis legs OZ MAGDALENO DO 06/17/19 1307: Subjective Subjective/Events-last exam paitent states right leg is conitnuing to improve. redness has gone down some along with the swelling. shortness of air last night, now resolved. Denies n/v fever sweats chills or chest pain. Objective Exam General Appearance: No Apparent Distress, Chronically ill HEENT: PERRL/EOMI Neck: Full Range of Motion, Non Tender, Supple Respiratory: Chest Non Tender, No Accessory Muscle Use, No Respiratory Distress Cardiovascular: Regular Rate, Rhythm Gastrointestinal: normal bowel sounds, soft, no organomegaly Extremity: Inflammation (decreased inflammation around right knee), Swelling (decreased swelling around R knee) Neurologic/Psychiatric: Alert, Oriented x3, Normal Mood/Affect Skin: Normal Color, Erythema (right leg thigh with erythema less around knee/thigh, and chronic venous stasis dermatitis lower leg right), Rash Assessment/Plan Assessment/Plan Assessment/Plan RLE cellulitis chronic shawna stasis RLE Afib continue medical management u/s pending, no u/s available over weekend leg has continued to improve no surgical intervention at this time, will follow Supervisory-Addendum Brief Verification & Attestation Participated in pt care: history, MDM, physical Personally performed: exam, history, MDM, supervision of care Care discussed with: Medical Student Procedures: n/a Results interpretation: Verified all documentation Verification and Attestation of Medical Student E/M Service A medical student performed and documented this service in my presence. I reviewed and verified all information documented by the medical student and made modifications to such information, when appropriate. I personally performed the physical exam and medical decision making. Oz Magdaleno, Jun 17, 2019,13:06 SHAJI COOL MED STUDENT Jun 17, 2019 08:14 OZ MAGDALENO DO Jun 17, 2019 13:07
[2019-06-17] MEDS: SENNA W/DOCUSATE (SENOKOT S) TABLET PO SCH ×2 (08:44→20:36)
[2019-06-17] MEDS: CALCIUM CARBONATE 600 MG (CALCARB) TAB PO SCH ×2 (08:47→20:36)
[2019-06-17] MEDS: DILTIAZEM 120 MG (CARDIZEM CD) CAP PO SCH (08:47)
--- NOTE | 2019-06-17 10:54 | Cardiology Progress Note ---
Cardiology SOAP Progress Note Subjective: No cardiac complaints. Improving cellulitis. Objective: I&O/Vital Signs 06/16/19 06/17/19 06/17/19 06/17/19 23:53 04:24 08:00 08:51 Temp 37.4 36.9 37.2 Pulse 96 93 110 Resp 16 18 20 B/P (MAP) 125/56 (79) 116/82 (93) 136/85 (102) Pulse Ox 94 92 94 O2 Delivery Room Air Room Air Room Air Room Air 06/17/19 00:00 Intake Total 2995 ml Balance 2995 ml Constitutional: appears stated age; No apparent distress; well-developed, well- nourished Respiratory: chest is bilaterally symmetric, lungs clear to auscultation Cardiovascular: regular rate-rhythm, S1 and S2 Gastrointestional: soft, audible bowel sounds; No spleenomegaly Extremities: No clubbing, No cyanosis, No significant edema; tenderness, wound (right lower extremity.) Neurologic/Psychiatric: no motor/sensory deficits, alert, normal mood/affect, oriented x 3, power is 5/5 both on sides Skin: No rash, No ulcerations Results/Procedures: Labs Laboratory Tests 06/17/19 04:54: White Blood Count 3.8L, Red Blood Count 3.55L, Hemoglobin 11.2L, Hematocrit 33L, Mean Corpuscular Volume 93, Mean Corpuscular Hemoglobin 32, Mean Corpuscular Hemoglobin Concent 34, Red Cell Distribution Width 13.4, Platelet Count 119L, Mean Platelet Volume 9.9, Neutrophils (%) (Auto) 69, Lymphocytes (%) (Auto) 20, Monocytes (%) (Auto) 10, Eosinophils (%) (Auto) 1, Basophils (%) (Auto) 0, Neutrophils # (Auto) 2.6, Lymphocytes # (Auto) 0.7L, Monocytes # (Auto) 0.4, Eosinophils # (Auto) 0.0, Basophils # (Auto) 0.0, Prothrombin Time 24.2H, INR Comment 2.1H, Sodium Level 139, Potassium Level 3.3L, Chloride Level 111H, Carbon Dioxide Level 18L, Anion Gap 10, Blood Urea Nitrogen 12, Creatinine 0.66, Estimat Glomerular Filtration Rate > 60, BUN/Creatinine Ratio 18, Glucose Level 88, Calcium Level 8.2L, Corrected Calcium 9.0, Total Bilirubin 1.1H, Aspartate Amino Transf (AST/SGOT) 21, Alanine Aminotransferase (ALT/SGPT) 16, Alkaline Phosphatase 44, Total Protein 5.8L, Albumin 3.0L Microbiology 06/15/19 Blood Culture - Preliminary, Resulted No growth A/P: Assessment/Dx: Paroxysmal atrial fibrillation, Subtherapeutic INR, right lower extremity cellulitis, Elevated d-dimer, Venous stasis dermatitis, Nonhealing right lower limb ulcer Plan: Paroxysmal atrial fibrillation, Lovenox bridge. Currently in sinus rhythm. Continue outpatient medical therapy. Subtherapeutic INR, low molecular weight heparin. right lower extremity cellulitis, defer to the primary team. Elevated d-dimer, subcutaneous to take INR, DVT could be a possibility. May require venous Dopplers. However treat with low molecular weight heparin. Venous stasis dermatitis, Nonhealing right lower limb ulcer, I would suggest doing bilateral lower extremity arterial Dopplers as well to rule out significant PAD as a cause of nonhealing ulcer. Thank you for your consultation. Please call me if you have any questions. Aaron Trimble MD, FACP, FACC, FSCAI, FHRS, CCDS Interventional Cardiology Cardiac Electrophysiology Vascular Medicine and Endovascular Interventions Focused Exam Lactate Level 06/15/19 16:15: Lactic Acid Level 1.10 Mauri TRIMBLE MD Jun 17, 2019 10:54
[2019-06-17 12:00] VITALS: BP 129/56
--- NOTE | 2019-06-17 12:06 | Progress Note - Hospitalist ---
Subjective HPI/CC On Admission Date Seen by Provider: Jun 17, 2019 Time Seen by Provider: 10:45 CC: Left leg cellulitis with venous stasis dermatitis chronically HPI: This is a 73yoWF clinic patient of Dr Guerrero transferring to Dr Crawley who has h/o chronic venous stasis dermatitis with chronic left leg ulcer who presents to the [facility] ER with left leg pain and redness upstream from her chronic ulceration. Patient was deemed stable and not septic but in need of IV abx. Patient remains on Coumadin and her INR was subtherapeutic at time of presentation and left leg has no evidence of DVT and she is on chronic indefini te OAC so she will be bridged with Lovenox and restarted on Coumadin until therapeutic. Dr Magdaleno has been consulted. 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 clinical resource director is at [facility] Changed to inpatient since she did not go home today Bowels are moving okay Bilateral lower extremity ultrasound will be performed arterial type We will discontinue Lovenox since INR is 2.1 Maintain on broad-spectrum antibiotics cellulitis is much improved but still present Review of Systems General: Fatigue Musculoskeletal: leg pain Focused Exam Lactate Level 06/15/19 16:15: Lactic Acid Level 1.10 Objective Exam Vital Signs Vital Signs Date Time Temp Pulse Resp B/P (MAP) Pulse Ox O2 Delivery O2 Flow Rate FiO2 06/17/19 16:10 38.0 82 20 123/67 (85) 92 Room Air Capillary Refill : Less Than 3 SecondsLess Than 3 Seconds General Appearance: No Apparent Distress, WD/WN, Chronically ill Respiratory: Chest Non Tender, Lungs Clear, Normal Breath Sounds, No Accessory Muscle Use, No Respiratory Distress Cardiovascular: Regular Rate, Rhythm, No Edema, No Gallop, No JVD, No Murmur, Normal Peripheral Pulses Neurologic/Psychiatric: Alert, Oriented x3, No Motor/Sensory Deficits, Normal Mood/Affect Skin: Rash (left upper leg cellulitis) Results/Procedures Lab Laboratory Tests 06/17/19 04:54 Patient resulted labs reviewed. Assessment/Plan Assessment and Plan Assess & Plan/Chief Complaint Assessment: Left leg cellulitis complicated with h/o chronic lower extremity venous stasis dermatitis with chronic ulceration AF OAC with Coumadin Plan: Monitor labs Home meds INR in am Lovenox bridge DC since INR 2.1 IV abx Diagnosis/Problems Diagnosis/Problems (1) Cellulitis of right leg Status: Acute (2) Venous stasis dermatitis of both lower extremities (3) Anticoagulated on Coumadin (4) Subtherapeutic anticoagulation (5) Atrial fibrillation Clinical Quality Measures DVT/VTE Risk/Contraindication: Risk Factor Score Per Nursin RFS Level Per Nursing on Admit: 4+=Very High Contraindications-Mechi: Other *list below* Other: cellulitis legs ISIDRA KONG DO Jun 17, 2019 12:06
[2019-06-17 16:10] VITALS: BP 123/67
[2019-06-17] MEDS: VANCOMYCIN 1500 MG/NS 500 ML IVPB IV SCH ×2 (17:14)
[2019-06-17] MEDS ORDERED: warFARin 3 MG (COUMADIN) TAB PO SCH (18:00)
[2019-06-17 20:00] VITALS: BP 148/75
[2019-06-18 00:12] VITALS: BP 110/59
[2019-06-18] MEDS: PIPERACILLIN/TAZOBACTAM (BULK) 4.5 GM in NS (IVPB) 100 ML IV SCH (04:00)
[2019-06-18 04:19] VITALS: BP 116/66
[2019-06-18 05:25] LABS: BASOPHILS % (AUTO) 0 % (0-10); EOSINOPHILS # (AUTO) 0.1 10^3/uL (0.0-0.3); EOSINOPHILS % (AUTO) 2 % (0-10); HEMATOCRIT 33 % (35-52); LYMPHOCYTES # (AUTO) 0.7 X 10^3 (1.0-4.0); LYMPHOCYTES % (AUTO) 13 % (12-44); MEAN CORPUSCULAR HEMOGLOBIN 31 PG (25-34); MEAN CORPUSCULAR HGB CONC 34 G/DL (32-36); MEAN CORPUSCULAR VOLUME 93 FL (80-99); MEAN PLATELET VOLUME 9.6 FL (7.4-10.4); MONOCYTES # (AUTO) 0.5 X 10^3 (0.0-1.0); MONOCYTES % (AUTO) 10 % (0-12); NEUTROPHILS # (AUTO) 3.8 X 10^3 (1.8-7.8); NEUTROPHILS % (AUTO) 75 % (42-75); PLATELET COUNT 143 10^3/uL (130-400); RED CELL DISTRIBUTION WIDTH 13.5 % (10.0-14.5); WHITE BLOOD COUNT 5.1 10^3/uL (4.3-11.0)
[2019-06-18 05:31] LABS: INR 2.4 (0.8-1.4); PROTHROMBIN TIME PATIENT 26.9 SEC (12.2-14.7)
[2019-06-18 05:47] LABS: ALANINE AMINOTRANSFERASE 15 U/L (0-55); ALKALINE PHOSPHATASE 46 U/L (40-136); BUN/CREATININE RATIO 13; CALCIUM 8.2 MG/DL (8.5-10.1); CARBON DIOXIDE 22 MMOL/L (21-32); CHLORIDE 108 MMOL/L (98-107); CREATININE SERUM 0.67 MG/DL (0.60-1.30); GFR ESTIMATED > 60; GLUCOSE 101 MG/DL (70-105); POTASSIUM 3.7 MMOL/L (3.6-5.0); SODIUM 139 MMOL/L (135-145); TOTAL PROTEIN 5.9 GM/DL (6.4-8.2)
[2019-06-18] MEDS: KCL 10 MEQ TAB (MICRO K) PO SCH (06:16)
--- NOTE | 2019-06-18 06:33 | Progress Note - Surgery ---
Subjective Date Seen by a Provider: Jun 18, 2019 Time Seen by a Provider: 06:28 Subjective/Events-last exam Patient feeling okay. No new issues with leg. She states the leg feels better today. Less heat and redness she states. Denies n/v fever sweats chills shortness of breath or chest pain. Focused Exam Lactate Level 06/15/19 16:15: Lactic Acid Level 1.10 Objective Exam Vital Signs Date Time Temp Pulse Resp B/P (MAP) Pulse Ox O2 Delivery O2 Flow Rate FiO2 06/18/19 04:19 36.8 90 18 116/66 (83) 92 Room Air 06/18/19 00:12 36.9 86 20 110/59 (76) 92 Room Air 06/17/19 20:00 Room Air 06/17/19 20:00 36.8 90 18 148/75 (99) 93 Room Air 06/17/19 16:10 38.0 82 20 123/67 (85) 92 Room Air 06/17/19 12:00 37.0 96 18 129/56 (80) 92 Room Air 06/17/19 08:51 Room Air 06/17/19 08:00 37.2 110 20 136/85 (102) 94 Room Air I & O 06/18/19 07:00 Intake Total 2375 ml Balance 2375 ml Capillary Refill : Less Than 3 SecondsLess Than 3 Seconds General Appearance: No Apparent Distress, WD/WN, Chronically ill HEENT: PERRL/EOMI Neck: Full Range of Motion, Non Tender, Supple Respiratory: Chest Non Tender, No Accessory Muscle Use, No Respiratory Distress Cardiovascular: Regular Rate, Rhythm Peripheral Pulses: 2+ Dorsalis Pedis (R), 2+ Left Dors-Pedis (L), 2+ Radial Pulses (R), 2+ Radial Pulses (L) Gastrointestinal: normal bowel sounds, soft, no organomegaly Extremity: Inflammation (decreased inflammation around right knee), Swelling (decreased swelling around R knee) Neurologic/Psychiatric: Alert, Oriented x3, No Motor/Sensory Deficits, Normal Mood/Affect Skin: Rash (left upper leg cellulitis) Lymphatic: No Adenopathy Results Lab Laboratory Tests 06/18/19 04:35: White Blood Count 5.1, Red Blood Count 3.50L, Hemoglobin 11.0L, Hematocrit 33L, Mean Corpuscular Volume 93, Mean Corpuscular Hemoglobin 31, Mean Corpuscular Hemoglobin Concent 34, Red Cell Distribution Width 13.5, Platelet Count 143, Mean Platelet Volume 9.6, Neutrophils (%) (Auto) 75, Lymphocytes (%) (Auto) 13, Monocytes (%) (Auto) 10, Eosinophils (%) (Auto) 2, Basophils (%) (Auto) 0, Neutrophils # (Auto) 3.8, Lymphocytes # (Auto) 0.7L, Monocytes # (Auto) 0.5, Eosinophils # (Auto) 0.1, Basophils # (Auto) 0.0, Prothrombin Time 26.9H, INR Comment 2.4H, Sodium Level 139, Potassium Level 3.7, Chloride Level 108H, Carbon Dioxide Level 22, Anion Gap 9, Blood Urea Nitrogen 9, Creatinine 0.67, Estimat Glomerular Filtration Rate > 60, BUN/Creatinine Ratio 13, Glucose Level 101, Calcium Level 8.2L, Corrected Calcium 9.0, Total Bilirubin 1.0, Aspartate Amino Transf (AST/SGOT) 18, Alanine Aminotransferase (ALT/SGPT) 15, Alkaline Phosphatase 46, Total Protein 5.9L, Albumin 3.0L Microbiology 06/15/19 Blood Culture - Preliminary, Resulted No growth Assessment/Plan Assessment/Plan Assessment/Plan RLE cellulitis chronic shawna stasis RLE Afib continue medical management u/s pending leg has continued to improve no surgical intervention at this time, will follow Clinical Quality Measures DVT/VTE Risk/Contraindication: Risk Factor Score Per Nursin RFS Level Per Nursing on Admit: 4+=Very High Contraindications-Mechi: Other *list below* Other: cellulitis legs LENNY SANTANA DO Jun 18, 2019 06:33
[2019-06-18 08:00] VITALS: BP 124/64
[2019-06-18] MEDS: CALCIUM CARBONATE 600 MG (CALCARB) TAB PO SCH (08:43)
[2019-06-18] MEDS: DILTIAZEM 120 MG (CARDIZEM CD) CAP PO SCH (08:43)
[2019-06-18] MEDS: SENNA W/DOCUSATE (SENOKOT S) TABLET PO SCH (08:43)
[2019-06-18] MEDS ORDERED: WARF1TAB82 PO ×2 (09:54→10:00)
[2019-06-18] MEDS ORDERED: CETI10TA17 PO (09:55)
[2019-06-18] MEDS ORDERED: MULT-974 PO (09:55)
--- NOTE | 2019-06-18 09:56 | NUR ---
SPOKE WITH PT WELL GOING THRU THE EXT MED HISTORY TO COMPLETE THE MED REC. PT WAS ABLE TO TELL ME HOW/WHEN SHE TAKES EACH MED AND THAT MATCHES THE EXT MED HIST. WARFARIN: PT ALTERNATES BETWEEN 5MG AND 6MG- SHE TAKES A 5MG EVERY DAY BUT ON ALTERNATING DAYS SHE ALSO TAKES A 1MG TO EQUAL 6MG. OTC MEDS: CALCIUM GLUCOSAMINE MTV ZYRTEC
--- NOTE | 2019-06-18 10:46 | Diagnostic Imaging Report ---
PROCEDURE: US Bilateral lower extremity arterial. TECHNIQUE: Multiple real-time grayscale images are obtained through both lower extremity arterial systems with color Doppler imaging and color Doppler spectral analysis. INDICATION: Right lower extremity ulcer. Predominantly triphasic and biphasic waveforms are identified throughout both lower extremity arterial systems with the exception of some monophasic waveforms in the posterior tibial artery distally on the right. No significant velocity elevation or high-grade stenosis is seen. There is no occlusion identified. There does appear to be an enlarged lymph node adjacent to the proximal right superficial femoral artery measuring up to 4.7 x 2.8 x 1.5 cm. No other abnormalities are seen. No fluid collections are identified. IMPRESSION: 1. No findings to suggest high-grade stenosis or occlusion within the right or left lower extremity arterial system. 2. Reniform mass in the soft tissues at the level of the proximal right superficial femoral artery, most suggestive of an enlarged lymph node measuring up to 4.7 cm in length. Etiology of this is indeterminate. Additional workup including CT abdomen and pelvis to evaluate other sites of adenopathy could be performed for better characterization. Dictated by: Dictated on workstation # [id number]
[2019-06-18] MEDS ORDERED: DOXY100T2 PO (12:38)
--- NOTE | 2019-06-18 12:39 | Discharge Instructions ---
Discharge [facility] Discharge Medications New, Converted or Re-Newed RX: Transmitted to Pharmacy New Medications: Doxycycline Hyclate (Doxycycline Hyclate) 100 Mg Tablet 100 MG PO BID for 7 Days, #14 TAB 0 Refills Continued Medications: Calcium Carbonate (Calcium) 600 Mg Tablet 600 MG PO BID, TAB Cetirizine HCl (Cetirizine HCl) 10 Mg Tablet 10 MG PO DAILY, TAB Diltiazem HCl (Cartia Xt) 120 Mg Cap.er.24h 120 MG PO DAILY, CAP Glucosamine Sulfate 2Kcl (Glucosamine) 1,000 Mg Tablet 1000 MG PO BID, TAB Multivitamin (Multi-Vitamin Daily) 1 Each Tablet 1 EACH PO DAILY, TAB Warfarin Sodium (Warfarin Sodium) 5 Mg Tablet 5 MG PO DAILY, TAB TAKES A 5MG EVERY DAY AND EVERY OTHER DAY SHE ADDS A 1MG TAB TO EQUAL 6MG EVERY OTHER DAY. Warfarin Sodium (Warfarin Sodium) 1 Mg Tablet 1 MG PO Q48H, TAB TAKES A 5MG EVERY DAY AND EVERY OTHER DAY SHE ADDS A 1MG TAB TO EQUAL 6MG EVERY OTHER DAY. Patient Instructions Goal/Follow Up Appt: Follow up with Dr. Crawley on 06/22 at 1115 am. Get your INR checked at clinic tomorrow. [facility]: Fever, inability to keep down medications Activity & Diet Discharge Diet: Cardiac Diet Activity as Tolerated: Yes Copy Copies To 1: BRITTANY CRAWLEY MD, BETHANY N MD Jun 18, 2019 12:39
[2019-06-18 13:55] VITALS: BP 124/64
--- NOTE | 2019-06-18 13:55 | NUR ---
CHACHA ACOSTA demonstrates understanding of discharge instructions and accurately returns instructions upon questioning. Copy of Post-Discharge Instructions and Medication Discharge Instructions given to . CHACHA ACOSTA is able to manage continuing needs after discharge. Patients belongings returned to pt. Skin dry and intact; no breakdown noted. Patient discharged from [facility] on 06/18/19 at 1355. CHACHA ACOSTA left floor via , accompanied by STAFF AND .
[2019-06-18] MEDS ORDERED: TROUGH ORDER-PHARMACY XX NR (16:00)
--- NOTE | 2019-06-18 20:11 | Cardiology Progress Note ---
Cardiology SOAP Progress Note Subjective: No cardiac complaints. Objective: I&O/Vital Signs 06/18/19 13:55 Temp 36.5 Pulse 89 Resp 16 B/P (MAP) 124/64 Pulse Ox 92 O2 Delivery Room Air 06/18/19 00:00 Intake Total 1635 ml Balance 1635 ml Constitutional: appears stated age; No apparent distress; well-developed, well- nourished Respiratory: chest is bilaterally symmetric, lungs clear to auscultation Cardiovascular: regular rate-rhythm, S1 and S2 Gastrointestional: soft, audible bowel sounds; No spleenomegaly Extremities: No clubbing, No cyanosis, No significant edema; tenderness, wound (right lower extremity.) Neurologic/Psychiatric: no motor/sensory deficits, alert, normal mood/affect, oriented x 3, power is 5/5 both on sides Skin: No rash, No ulcerations Results/Procedures: Labs Laboratory Tests 06/18/19 04:35: White Blood Count 5.1, Red Blood Count 3.50L, Hemoglobin 11.0L, Hematocrit 33L, Mean Corpuscular Volume 93, Mean Corpuscular Hemoglobin 31, Mean Corpuscular Hemoglobin Concent 34, Red Cell Distribution Width 13.5, Platelet Count 143, Mean Platelet Volume 9.6, Neutrophils (%) (Auto) 75, Lymphocytes (%) (Auto) 13, Monocytes (%) (Auto) 10, Eosinophils (%) (Auto) 2, Basophils (%) (Auto) 0, Neutrophils # (Auto) 3.8, Lymphocytes # (Auto) 0.7L, Monocytes # (Auto) 0.5, Eosinophils # (Auto) 0.1, Basophils # (Auto) 0.0, Prothrombin Time 26.9H, INR Comment 2.4H, Sodium Level 139, Potassium Level 3.7, Chloride Level 108H, Carbon Dioxide Level 22, Anion Gap 9, Blood Urea Nitrogen 9, Creatinine 0.67, Estimat Glomerular Filtration Rate > 60, BUN/Creatinine Ratio 13, Glucose Level 101, Calcium Level 8.2L, Corrected Calcium 9.0, Total Bilirubin 1.0, Aspartate Amino Transf (AST/SGOT) 18, Alanine Aminotransferase (ALT/SGPT) 15, Alkaline Phosphatase 46, Total Protein 5.9L, Albumin 3.0L Microbiology 06/15/19 Blood Culture - Preliminary, Resulted No growth A/P: Assessment/Dx: Paroxysmal atrial fibrillation, Subtherapeutic INR, right lower extremity cellulitis, Elevated d-dimer, Venous stasis dermatitis, Nonhealing right lower limb ulcer Plan: Paroxysmal atrial fibrillation, Lovenox bridge. Currently in sinus rhythm. Continue outpatient medical therapy. Subtherapeutic INR, low molecular weight heparin. right lower extremity cellulitis, defer to the primary team. Elevated d-dimer, subcutaneous to take INR, DVT could be a possibility. May require venous Dopplers. However treat with low molecular weight heparin. Venous stasis dermatitis, Nonhealing right lower limb ulcer, no PAD on bilateral lower extremity Dopplers. However 4.7 cm lymph node seen in the right SFA right lower extremity further imaging is recommended. Thank you for your consultation. Please call me if you have any questions. Aaron Trimble MD, FACP, FACC, FSCAI, FHRS, CCDS Interventional Cardiology Cardiac Electrophysiology Vascular Medicine and Endovascular Interventions Mauri TRIMBLE MD Jun 18, 2019 20:11
--- NOTE | 2019-06-18 21:15 | Discharge Summary ---
Discharge Summary Hospital Course Hospital Course Date of Admission: Jun 17, 2019 at 09:56 Admission Diagnosis : Family Physician/Provider: Date of Discharge: 06/18/19 Discharge Diagnosis: Right leg cellulitis Hospital Course: 73 yo female admitted with right leg cellulitis, started on vancomycin and zosyn and had improvement in erythema and pain. She had right leg US which showed no arterial concerns, but did have very large lymph node 4.9 cm, and follow up imaging including possible CT abdomen/pelvis to look for further lymphadenopathy could be considered per Radiology. Discussed with patient and she was hopeful to go home, recommend she follow up with primary outpatient. No growth on blood cultures and no drainage to culture, was discharged with doxycycline. Right leg US 06/18 Report- "IMPRESSION: 1. No findings to suggest high-grade stenosis or occlusion within the right or l eft lower extremity arterial system. 2. Reniform mass in the soft tissues at the level of the proximal right superficial femoral artery, most suggestive of an enlarged lymph node measuring up to 4.7 cm in length. Etiology of this is indeterminate. Additional workup including CT abdomen and pelvis to evaluate other sites of adenopathy could be performed for better characterization. Labs and Pending Lab Test: Laboratory Tests 06/18/19 04:35: White Blood Count 5.1, Red Blood Count 3.50L, Hemoglobin 11.0L, Hematocrit 33L, Mean Corpuscular Volume 93, Mean Corpuscular Hemoglobin 31, Mean Corpuscular Hemoglobin Concent 34, Red Cell Distribution Width 13.5, Platelet Count 143, Mean Platelet Volume 9.6, Neutrophils (%) (Auto) 75, Lymphocytes (%) (Auto) 13, Monocytes (%) (Auto) 10, Eosinophils (%) (Auto) 2, Basophils (%) (Auto) 0, Neutrophils # (Auto) 3.8, Lymphocytes # (Auto) 0.7L, Monocytes # (Auto) 0.5, Eosinophils # (Auto) 0.1, Basophils # (Auto) 0.0, Prothrombin Time 26.9H, INR Comment 2.4H, Sodium Level 139, Potassium Level 3.7, Chloride Level 108H, Carbon Dioxide Level 22, Anion Gap 9, Blood Urea Nitrogen 9, Creatinine 0.67, Estimat Glomerular Filtration Rate > 60, BUN/Creatinine Ratio 13, Glucose Level 101, Calcium Level 8.2L, Corrected Calcium 9.0, Total Bilirubin 1.0, Aspartate Amino Transf (AST/SGOT) 18, Alanine Aminotransferase (ALT/SGPT) 15, Alkaline Phosphatase 46, Total Protein 5.9L, Albumin 3.0L Microbiology 06/15/19 Blood Culture - Preliminary, Resulted No growth Home Meds Active Doxycycline Hyclate 100 Mg Tablet 100 Mg PO BID 7 Days Reported Warfarin Sodium 1 Mg Tablet 1 Mg PO Q48H TAKES A 5MG EVERY DAY AND EVERY OTHER DAY SHE ADDS A 1MG TAB TO EQUAL 6MG EVERY OTHER DAY. Cetirizine HCl 10 Mg Tablet 10 Mg PO DAILY Multi-Vitamin Daily (Multivitamin) 1 Each Tablet 1 Each PO DAILY Calcium (Calcium Carbonate) 600 Mg Tablet 600 Mg PO BID Glucosamine (Glucosamine Sulfate 2Kcl) 1,000 Mg Tablet 1,000 Mg PO BID Cartia Xt (Diltiazem HCl) 120 Mg Cap.er.24h 120 Mg PO DAILY Warfarin Sodium 5 Mg Tablet 5 Mg PO DAILY TAKES A 5MG EVERY DAY AND EVERY OTHER DAY SHE ADDS A 1MG TAB TO EQUAL 6MG EVERY OTHER DAY. Assessment/Pt DC Instructions See hospital course Discharge Physical Examination Allergies: Coded Allergies: No Known Drug Allergies (Unverified , 06/15/19) General Appearance: No Apparent Distress, WD/WN Respiratory: Lungs Clear, Normal Breath Sounds Cardiovascular: No Murmur, Irregularly Irregular Skin: Other (Right leg with erythema from ankle to mid calf circumferentially with some ulcerations (pt reports chronic), patchy erythema and warmth in near circumferential area just above knee) Neurologic/Psychiatric: Alert, Normal Mood/Affect Copy Copies To 1: SELF,BRITTANY DANIEL Discharge Summary Date of Admission Jun 17, 2019 at 09:56 Date of Discharge Jun 18, 2019 at 13:55 Discharge Date: Jun 18, 2019 Admission Diagnosis Assessment: Left leg cellulitis complicated with h/o chronic lower extremity venous stasis dermatitis with chronic ulceration AF OAC with Coumadin Plan: Monitor labs Home meds INR in am Lovenox bridge IV abx Discharge Diagnosis (1) Cellulitis of right leg Status: Acute (2) Venous stasis dermatitis of both lower extremities (3) Anticoagulated on Coumadin (4) Subtherapeutic anticoagulation (5) Atrial fibrillation Clinical Quality Measures DVT/VTE Risk/Contraindication: Risk Factor Score Per Nursin RFS Level Per Nursing on Admit: 4+=Very High Contraindications-Mechi: Other *list below* Other: cellulitis legs MACHELLE MARTINEZ MD Jun 18, 2019 21:15
== END 2019-06-18 13:55 | disposition home or self-care (01) | DRG 603 ==
LOC: EDUNIT# 15:15 → ER FS 15:18 → UNDOADMOB 17:44 → ICU 17:44 → 4TH 17:50 → OBSVTOIN 06-17 09:56
PROVIDERS: ADMIT Internal Medicine; ATTEND Family Medicine
DX: L03.115 Cellulitis of right lower limb (principal); I87.2 Venous insufficiency (chronic) (peripheral); Z79.01 Long term (current) use of anticoagulants; I48.0 Paroxysmal atrial fibrillation; I10 Essential (primary) hypertension; L97.819 Non-pressure chronic ulcer of other part of right lower leg with unspecified severity; E66.01 Morbid (severe) obesity due to excess calories; Z68.37 Body mass index [BMI] 37.0-37.9, adult; Z90.722 Acquired absence of ovaries, bilateral
CPT/HCPCS: 36415; 73562; 73590; 80053; 83605; 85007; 85025; 85027; 85379; 85610; 85652; 85730; 86141; 87040; 93306; 93925

== ENCOUNTER 2020-09-15 12:38 | Inpatient (IN) | payer MEDICARE, OTHER ==
[~2020-09-15] VITALS: Ht 157.2 cm; Wt 104.9 kg
[~2020-09-15 12:38] MED LIST: CETI10TA17 PO; CLC600T PO; DILT120C53 PO; DOXY100T2 PO; GLUC100016 PO; MULT-974 PO; WARF-48 PO; WARF6TAB49 PO; WRF1T PO
[2020-09-15] MEDS ORDERED: NS IV 1000 ML 1,000 ML IV SCH (13:00)
[2020-09-15] MEDS ORDERED: ACETAMINOPHEN 325 MG TABLET PO ONE (13:00)
--- NOTE | 2020-09-15 13:03 | ED General ---
General Stated Complaint: DIARRHEA Source of Information: Patient Exam Limitations: No Limitations History of Present Illness Date Seen by Provider: Sep 15, 2020 Time Seen by Provider: 13:00 Initial Comments To ER by private vehicle from home with reports of 6 days of cough and terrible diarrhea. She denies fevers chills or shortness of breath. She was exposed to Covid 2 weeks ago. On arrival her oxygen saturation is 59% with good waveform. She has a history of atrial fibrillation maintained on warfarin. She has had bloody stools for 2 days she states she believes it is from her hemorrhoids. She has a history of anemia. Timing/Duration: 1 Week Severity: Moderate Associated Systoms: Malaise, Weakness Allergies and Home Medications Allergies Coded Allergies: Sulfa (Sulfonamide Antibiotics) (Verified Allergy, Unknown, 09/15/20) Home Medications Calcium Carbonate 600 Mg Tablet, 600 MG PO BID, (Reported) Cetirizine HCl 10 Mg Tablet, 10 MG PO DAILY, (Reported) Diltiazem HCl 120 Mg Cap.er.24h, 120 MG PO DAILY, (Reported) Doxycycline Hyclate 100 Mg Tablet, 100 MG PO BID Prescribed by: MACHELLE MARTINEZ on 06/18/19 1238 Glucosamine Sulfate 2Kcl 1,000 Mg Tablet, 1,000 MG PO BID, (Reported) Multivitamin 1 Each Tablet, 1 EACH PO DAILY, (Reported) Warfarin Sodium 5 Mg Tablet, 5 MG PO DAILY, (Reported) TAKES A 5MG EVERY DAY AND EVERY OTHER DAY SHE ADDS A 1MG TAB TO EQUAL 6MG EVERY OTHER DAY. Warfarin Sodium 1 Mg Tablet, 1 MG PO Q48H, (Reported) TAKES A 5MG EVERY DAY AND EVERY OTHER DAY SHE ADDS A 1MG TAB TO EQUAL 6MG EVERY OTHER DAY. Patient Home Medication List Home Medication List Reviewed: Yes Review of Systems Review of Systems Constitutional: see HPI, malaise, weakness EENTM: see HPI Respiratory: see HPI, cough Cardiovascular: no symptoms reported Gastrointestinal: diarrhea, melena Genitourinary: no symptoms reported Musculoskeletal: no symptoms reported Skin: no symptoms reported Psychiatric/Neurological: No Symptoms Reported Hematologic/Lymphatic: No Symptoms Reported Past Ikigjpx-Hpyrjj-Fhozcd Hx Patient Social History 2nd Hand Smoke Exposure: No Recent Hopitalizations: No Immunizations Up To Date Date of Pneumonia Vaccine: Jun 27, 2017 Seasonal Allergies Seasonal Allergies: No Past Medical History Surgeries: Yes (OOPHORECTOMY) Gallbladder Respiratory: No Cardiac: Yes Atrial Fibrillation, Hypertension Neurological: No Sexually Transmitted Disease: No Genitourinary: No Gastrointestinal: No Musculoskeletal: No Endocrine: No HEENT: No Cancer: No Psychosocial: No Integumentary: No Blood Disorders: No Family Medical History Aortic aneurysm G8 BROTHER Cardiovascular disease 19 MOTHER FH: uterine cancer G8 SISTER Myocardial infarction 19 FATHER G8 SISTER No Pertinent Family Hx Physical Exam Vital Signs Vital Signs - First Documented 09/15/20 09/15/20 12:42 13:10 Temp 37.6 Pulse 93 Resp 22 B/P (MAP) 119/70 (86) Pulse Ox 48 O2 Delivery Room Air O2 Flow Rate 30.00 FiO2 90 Capillary Refill : Height, Weight, BMI Height: '" Weight: lbs. oz. kg; 37.57 BMI Method: General Appearance: No Apparent Distress, WD/WN, Other (Cyanotic, appears dyspneic and easily winded. On 15 L with simple mask oxygen saturation alesia to 89%. RT was called and will initiate Vapotherm. ABG obtained. She is alert and mentating normally.) Eyes: Bilateral Eye Normal Inspection, Bilateral Eye PERRL, Bilateral Eye EOMI Neck: Full Range of Motion, Normal Inspection Respiratory: No Accessory Muscle Use, Respiratory Distress Cardiovascular: Regular Rate, Rhythm, Normal Peripheral Pulses Extremity: Slow Capillary Refill, Other (Cyanotic) Neurologic/Psychiatric: Alert, Oriented x3 Skin: Normal Color, Warm/Dry, Other (Venous stasis dermatitis right lower extremity) Focused Exam Lactate Level 09/15/20 12:55: Lactic Acid Level 1.48 Lactic Acid Level Laboratory Tests Test 09/15/20 12:55 Lactic Acid Level 1.48 MMOL/L (0.50-2.00) Progress/Results/Core Measures Suspected Sepsis SIRS Temperature: Pulse: Respiratory Rate: Laboratory Tests 09/15/20 12:55: White Blood Count 3.3L Blood Pressure / Mean: 09/15/20 12:55: Lactic Acid Level 1.48 Laboratory Tests 09/15/20 12:55: Creatinine 0.89, INR Comment 1.6H, Platelet Count 119L, Total Bilirubin 0.7 Results/Orders Lab Results Laboratory Tests Test 09/15/20 12:55 09/15/20 13:00 Range/Units White Blood Count 3.3 L 4.3-11.0 10^3/uL Red Blood Count 4.95 3.80-5.11 10^6/uL Hemoglobin 15.9 11.5-16.0 g/dL Hematocrit 46 35-52 % Mean Corpuscular Volume 92 80-99 fL Mean Corpuscular Hemoglobin 32 25-34 pg Mean Corpuscular Hemoglobin Concent 35 32-36 g/dL Red Cell Distribution Width 12.8 10.0-14.5 % Platelet Count 119 L 130-400 10^3/uL Mean Platelet Volume 9.2 9.0-12.2 fL Immature Granulocyte % (Auto) 0 % Neutrophils (%) (Auto) 83 H 42-75 % Lymphocytes (%) (Auto) 10 L 12-44 % Monocytes (%) (Auto) 7 0-12 % Eosinophils (%) (Auto) 0 0-10 % Basophils (%) (Auto) 0 0-10 % Neutrophils # (Auto) 2.7 1.8-7.8 10^3/uL Lymphocytes # (Auto) 0.3 L 1.0-4.0 10^3/uL Monocytes # (Auto) 0.2 0.0-1.0 10^3/uL Eosinophils # (Auto) 0.0 0.0-0.3 10^3/uL Basophils # (Auto) 0.0 0.0-0.1 10^3/uL Immature Granulocyte # (Auto) 0.0 0.0-0.1 10^3/uL Prothrombin Time 19.5 H 12.2-14.7 SEC INR Comment 1.6 H 0.8-1.4 Activated Partial Thromboplast Time 46 H 24-35 SEC Fibrinogen 630 H 221-496 MG/DL Sodium Level 135 135-145 MMOL/L Potassium Level 3.5 L 3.6-5.0 MMOL/L Chloride Level 102 98-107 MMOL/L Carbon Dioxide Level 20 L 21-32 MMOL/L Anion Gap 13 5-14 MMOL/L Blood Urea Nitrogen 13 7-18 MG/DL Creatinine 0.89 0.60-1.30 MG/DL Estimat Glomerular Filtration Rate > 60 BUN/Creatinine Ratio 15 Glucose Level 117 H 70-105 MG/DL Lactic Acid Level 1.48 0.50-2.00 MMOL/L Calcium Level 8.6 8.5-10.1 MG/DL Corrected Calcium 8.9 8.5-10.1 MG/DL Total Bilirubin 0.7 0.1-1.0 MG/DL Aspartate Amino Transf (AST/SGOT) 69 H 5-34 U/L Alanine Aminotransferase (ALT/SGPT) 21 0-55 U/L Alkaline Phosphatase 57 40-136 U/L Lactate Dehydrogenase 753 H 125-220 U/L Troponin I 0.028 <0.028 NG/ML C-Reactive Protein High Sensitivity 9.02 H 0.00-0.50 MG/DL B-Type Natriuretic Peptide 186.5 H <100.0 PG/ML Total Protein 7.1 6.4-8.2 GM/DL Albumin 3.6 3.2-4.5 GM/DL Procalcitonin 0.33 H <0.10 NG/ML Blood Gas Puncture Site LT RAD Blood Gas Patient Temperature 37.4 Arterial Blood pH 7.45 H 7.37-7.43 Arterial Blood Partial Pressure CO2 31 L 35-45 MMHG Arterial Blood Partial Pressure O2 54 L 79-93 MMHG Arterial Blood HCO3 21 L 23-27 MMOL/L Arterial Blood Total CO2 22.1 21.0-31.0 MMOL/L Arterial Blood Oxygen Saturation 88 L 94-100 % Arterial Blood Base Excess -2.1 -2.5-2.5 MMOL/L Noble Test YES-POS Blood Gas Ventilator Setting NO Blood Gas Inspired Oxygen 15 L Coronavirus 2019 (MELANIA) Positive H Negative My Orders Orders - ANEL TURCIOS APRN Vital Signs: Every 4 Hours (Or (09/15/20 12:56) Monitor-Rhythm Ecg Trace Only (09/15/20 12:56) Cbc With Automated Diff (09/15/20 12:56) Comprehensive Metabolic Panel (09/15/20 12:56) Ferritin (09/15/20 12:56) LDH (09/15/20 12:56) Hs C Reactive Protein (09/15/20 12:56) Troponin I (09/15/20 12:56) Lactic Acid Analyzer (09/15/20 12:56) Protime With Inr (09/15/20 12:56) Partial Thromboplastin Time (09/15/20 12:56) Fibrinogen (09/15/20 12:56) Ekg Tracing (09/15/20 12:56) Chest 1 View, Ap/Pa Only (09/15/20 12:56) Ns Iv 1000 Ml (Sodium Chloride 0.9%) (09/15/20 13:00) Acetaminophen Tablet/Caplet (Tylenol T (09/15/20 13:00) Oxygen Delivery Set Up (09/15/20 12:56) Oxygen-Administer 07,19 (09/15/20 12:56) Procalcitonin (Pct) (09/15/20 12:56) Covid 19 Inhouse Test (09/15/20 12:56) Arterial Blood Gas (09/15/20 13:04) BNP (09/15/20 13:31) Medications Given in ED Current Medications Medications Dose Ordered Sig/Otilia Route Start Time Stop Time Status Last Admin Dose Admin Acetaminophen 650 mg ONCE ONCE PO 09/15/20 13:00 09/15/20 13:01 DC 09/15/20 13:29 650 MG Vital Signs/I&O 09/15/20 09/15/20 09/15/20 12:42 13:10 13:16 Temp 37.6 Pulse 93 Resp 22 B/P (MAP) 119/70 (86) Pulse Ox 48 95 O2 Delivery Room Air Vapotherm Nasal Cannula O2 Flow Rate 30.00 4.00 FiO2 90 Capillary Refill : Departure Communication (Admissions) NAME: CHACHA ACOSTA [facility] REC#: [id number] PT STATUS: REG ER : 1945 PHYSICIAN: ANEL TURCIOS APRN ADMIT DATE: 09/15/20/ER Draft Date of Exam:09/15/20 CHEST 1 VIEW, AP/PA ONLY INDICATION: Shortness of air. TIME OF EXAM: 1:33 PM No prior studies are available for comparison. FINDINGS: There are bilateral perihilar pulmonary infiltrates. There is cardiomegaly. No significant effusion is seen. There is no pneumothorax. IMPRESSION: Cardiomegaly and bilateral perihilar pulmonary infiltrates. This could be owing to congestive failure. Dictated on workstation # [id number] Dict: 09/15/20 1333 Trans: 09/15/20 1336 [id number] Interpreted by: NAIMA WATSON MD Electronically signed by: I did discuss CODE STATUS with her. I asked if she wanted to be on a ventilator if she should need that and she states no. I asked if she wants to be resu scitated if her heart stops unexpectedly and she states "no, I know where I am going and I am ready". We will make her DO NOT INTUBATE/DO NOT RESUSCITATE status. 1315-currently on Vapotherm at 30 L 80% FiO2 with oxygen saturation 94%. Impression Primary Impression: Hypoxia Additional Impressions: Respiratory distress COVID-19 Disposition: ADMITTED INPATIENT Condition: Stable Admissions Decision to Admit Reason: Admit from ER (General) Decision to Admit/Date: Sep 15, 2020 Time/Decision to Admit Time: 13:54 Departure-Patient Inst. Referrals: SELF,BRITTANY DANIEL (PCP/Family) Primary Care Physician ANEL TURCIOS APRN Sep 15, 2020 13:03
[2020-09-15 13:07] LABS: BASOPHILS % (AUTO) 0 % (0-10); EOSINOPHILS % (AUTO) 0 % (0-10); HEMATOCRIT 46 % (35-52); HEMOGLOBIN 15.9 g/dL (11.5-16.0); LYMPHOCYTES # (AUTO) 0.3 10^3/uL (1.0-4.0); LYMPHOCYTES % (AUTO) 10 % (12-44); MEAN CORPUSCULAR HEMOGLOBIN 32 pg (25-34); MEAN CORPUSCULAR HGB CONC 35 g/dL (32-36); MEAN CORPUSCULAR VOLUME 92 fL (80-99); MEAN PLATELET VOLUME 9.2 fL (9.0-12.2); MONOCYTES # (AUTO) 0.2 10^3/uL (0.0-1.0); MONOCYTES % (AUTO) 7 % (0-12); NEUTROPHILS # (AUTO) 2.7 10^3/uL (1.8-7.8); NEUTROPHILS % (AUTO) 83 % (42-75); PLATELET COUNT 119 10^3/uL (130-400); WHITE BLOOD COUNT 3.3 10^3/uL (4.3-11.0)
[2020-09-15 13:16] LABS: ABG BASE EXCESS -2.1 MMOL/L (-2.5-2.5); ABG OXYGEN SATURATION 88 % (94-100); ABG PCO2 31 MMHG (35-45); ABG PH 7.45 (7.37-7.43); ABG PO2 54 MMHG (79-93); ABG TCO2 22.1 MMOL/L (21.0-31.0); ALLENS TEST YES-POS
[2020-09-15 13:17] LABS: INSPIRED O2 15 L; PATIENT TEMP 37.4; VENTILATOR NO
[2020-09-15 13:35] LABS: ALANINE AMINOTRANSFERASE 21 U/L (0-55); ALBUMIN 3.6 GM/DL (3.2-4.5); ALKALINE PHOSPHATASE 57 U/L (40-136); BILIRUBIN,TOTAL 0.7 MG/DL (0.1-1.0); BUN/CREATININE RATIO 15; CALCIUM 8.6 MG/DL (8.5-10.1); CARBON DIOXIDE 20 MMOL/L (21-32); CHLORIDE 102 MMOL/L (98-107); CREATININE SERUM 0.89 MG/DL (0.60-1.30); GFR ESTIMATED > 60; GLUCOSE 117 MG/DL (70-105); POTASSIUM 3.5 MMOL/L (3.6-5.0); SODIUM 135 MMOL/L (135-145); TOTAL PROTEIN 7.1 GM/DL (6.4-8.2)
--- NOTE | 2020-09-15 13:37 | Diagnostic Imaging Report ---
INDICATION: Shortness of air. TIME OF EXAM: 1:33 PM No prior studies are available for comparison. FINDINGS: There are bilateral perihilar pulmonary infiltrates. There is cardiomegaly. No significant effusion is seen. There is no pneumothorax. IMPRESSION: Cardiomegaly and bilateral perihilar pulmonary infiltrates. This could be owing to congestive failure. Dictated by: Dictated on workstation # [id number]
[2020-09-15 14:51] LABS: INR 1.6 (0.8-1.4); PROTHROMBIN TIME PATIENT 19.5 SEC (12.2-14.7)
[2020-09-15] MEDS ORDERED: ENOXAPARIN 100 MG/1 ML (LOVENOX) SYR SC ONE (15:00)
[2020-09-15] MEDS: dexAMETHasone 6 MG TAB (DECADRON) PO SCH (15:42)
[2020-09-15] MEDS: LACTATED RINGERS 1,000 ML IV SCH (15:42)
[2020-09-15] MEDS ORDERED: LOPERAMIDE 2 MG (IMODIUM) TABLET PO PRN (16:00)
[2020-09-15] MEDS ORDERED: cefTRIAXone 1,000 MG/SWFI 10 ML IV PUSH IV SCH ×2 (16:00)
[2020-09-15] MEDS ORDERED: ONDANSETRON 4 MG/2 ML (SDV) Z0FRAN IVP PRN (16:00)
[2020-09-15] MEDS ORDERED: AZITHROMYCIN 500 MG/NS 250 ML IVPB IV NR ×2 (16:00)
[2020-09-15 18:02] VITALS: BP 119/70
[2020-09-15] MEDS ORDERED: RT-ALBUTEROL INHALER HFA (VENTOLIN HFA) 18 GM IH PRN (18:15)
--- NOTE | 2020-09-15 20:31 | History & Physical-Hospitalist ---
History of Present Illness HPI/Chief Complaint CC: COVID-19 PNA with hypoxia HPI: This is a 75yoWF clinic patient of [facility] who had yet to obtain the COVID-19 vaccine due to "wanted to wait to see if there were any side effects" who presented to the ER with N/V and dyspnea and found to have O2 sat of 59%. Her sister had COVID and she spent some time with her last week. Patient feels better on 100" Vapotherm. ICU admit recommended. Patient denies pain. Source: patient, RN/MD Exam Limitations: clinical condition Date Seen 09/15/20 Time Seen by a Provider: 18:00 Attending Physician Sisi Mack DO PCP Misbah,Joel DANIEL Referring Physician Date of Admission Sep 15, 2020 at 14:11 Home Medications & Allergies Home Medications Reviewed patient Home Medication Reconciliation performed by pharmacy medication reconciliations wafer fabrication technician and/or nursing. Patients Allergies have been reviewed. Allergies Allergies Coded Allergies Sulfa (Sulfonamide Antibiotics) (Verified Allergy, Unknown, 09/15/20) Past Smkoiid-Mfzjaj-Ycsmfy Hx Past Med/Social Hx: Reviewed Nursing Past Med/Soc Hx, Reviewed and Corrections made Patient Social History Marrital Status: single Employed/Student: retired Alcohol Use: Denies Use Recreational Drug Use: No Smoking Status: Never a Smoker 2nd Hand Smoke Exposure: No Recent Foreign Travel: No Contact w/other who traveled: No Recent Hopitalizations: No Recent Infectious Disease Expo: No Immunizations Up To Date Date of Pneumonia Vaccine: Jun 27, 2017 Seasonal Allergies Seasonal Allergies: No Past Medical History Surgeries: Gallbladder Cardiac: Atrial Fibrillation, Hypertension Sexually Transmitted Disease: No History of Blood Disorders: No Family History Aortic aneurysm G8 BROTHER Cardiovascular disease 19 MOTHER FH: uterine cancer G8 SISTER Myocardial infarction 19 FATHER G8 SISTER No Pertinent Family Hx Review of Systems Constitutional: see HPI, malaise, weakness Respiratory: dyspnea on exertion Physical Exam Physical Exam Vital Signs Vital Signs - First Documented 09/15/20 09/15/20 12:42 13:10 Temp 37.6 Pulse 93 Resp 22 B/P (MAP) 119/70 (86) Pulse Ox 48 O2 Delivery Room Air O2 Flow Rate 30.00 FiO2 90 Capillary Refill : Less Than 3 Seconds Height, Weight, BMI Height: '" Weight: lbs. oz. kg; 36.00 BMI Method: General Appearance: Anxious, Chronically ill, Mild Distress Eyes: Right Eye Normal Inspection, Right Eye PERRL HEENT: PERRL/EOMI, Normal ENT Inspection, Pharynx Normal, Moist Mucous Membranes Neck: Full Range of Motion, Normal Inspection, Non Tender Respiratory: Chest Non Tender, Lungs Clear, No Accessory Muscle Use, No Respiratory Distress, Decreased Breath Sounds Cardiovascular: No Edema, No Gallop, No JVD, No Murmur, Normal Peripheral Pulses, Irregularly Irregular, Tachycardia Gastrointestinal: Normal Bowel Sounds, No Organomegaly, No Pulsatile Mass, Non Tender, Soft Back: Normal Inspection, No CVA Tenderness, No Vertebral Tenderness Extremity: Normal Capillary Refill, Normal Inspection, Normal Range of Motion, Non Tender, No Calf Tenderness, No Pedal Edema Neurologic/Psychiatric: Alert, Oriented x3, No Motor/Sensory Deficits, Normal Mood/Affect Skin: Normal Color, Warm/Dry Lymphatic: No Adenopathy Results Results/Procedures Labs Laboratory Tests 09/15/20 12:55 09/16/20 03:55 Patient resulted labs reviewed. Assessment/Plan Admission Diagnosis Assessment: COVID-19 PNA Hypoxia severe AF hx HTN Plan: ICU Vapotherm COVID protocol Admission Status: Inpatient Order (span 2 midnights) Reason for Inpatient Admission: COVID 19 Diagnosis/Problems Diagnosis/Problems (1) COVID-19 Status: Acute (2) Hypoxia Status: Acute (3) Respiratory distress Status: Acute (4) Atrial fibrillation SISI MACK DO Sep 15, 2020 20:31
[2020-09-15] MEDS: RT-ALBUTEROL INHALER HFA (VENTOLIN HFA) 18 GM IH SCH (21:25)
[2020-09-15 22:02] VITALS: BP 100/53
[2020-09-15] MEDS: DexMEDEtomidine 250 ML DRIP 250 ML IV SCH (23:38)
[2020-09-16 01:02] VITALS: BP 100/53
[2020-09-16] MEDS: RT-ALBUTEROL INHALER HFA (VENTOLIN HFA) 18 GM IH SCH ×4 (01:05→18:44)
[2020-09-16] MEDS: ENOXAPARIN 100 MG/1 ML (LOVENOX) SYR SC SCH ×2 (04:26→14:36)
[2020-09-16 04:29] LABS: BASOPHILS % (AUTO) 0 % (0-10); EOSINOPHILS % (AUTO) 0 % (0-10); HEMATOCRIT 43 % (35-52); HEMOGLOBIN 14.6 g/dL (11.5-16.0); LYMPHOCYTES # (AUTO) 0.2 10^3/uL (1.0-4.0); LYMPHOCYTES % (AUTO) 13 % (12-44); MEAN CORPUSCULAR HEMOGLOBIN 31 pg (25-34); MEAN CORPUSCULAR HGB CONC 34 g/dL (32-36); MEAN CORPUSCULAR VOLUME 92 fL (80-99); MEAN PLATELET VOLUME 9.9 fL (9.0-12.2); MONOCYTES # (AUTO) 0.1 10^3/uL (0.0-1.0); MONOCYTES % (AUTO) 7 % (0-12); NEUTROPHILS # (AUTO) 1.4 10^3/uL (1.8-7.8); NEUTROPHILS % (AUTO) 80 % (42-75); PLATELET COUNT 114 10^3/uL (130-400); WHITE BLOOD COUNT 1.8 10^3/uL (4.3-11.0)
[2020-09-16 04:39] LABS: CHLORIDE 108 MMOL/L (98-107); POTASSIUM 3.6 MMOL/L (3.6-5.0); SODIUM 139 MMOL/L (135-145)
[2020-09-16 04:39] LABS: ABG BASE EXCESS -1.6 MMOL/L (-2.5-2.5); ABG OXYGEN SATURATION 94 % (94-100); ABG PCO2 28 MMHG (35-45); ABG PH 7.49 (7.37-7.43); ABG PO2 78 MMHG (79-93); ABG TCO2 22.3 MMOL/L (21.0-31.0); ALLENS TEST YES-POS; INSPIRED O2 100%; PATIENT TEMP 36.4; VENTILATOR NO
[2020-09-16 04:40] LABS: INR 1.8 (0.8-1.4); PROTHROMBIN TIME PATIENT 21.2 SEC (12.2-14.7)
[2020-09-16 04:41] LABS: GLUCOSE 162 MG/DL (70-105)
[2020-09-16 04:42] LABS: CARBON DIOXIDE 19 MMOL/L (21-32)
[2020-09-16 04:44] LABS: PHOSPHORUS 2.6 MG/DL (2.3-4.7)
[2020-09-16 04:45] LABS: CREATININE SERUM 0.73 MG/DL (0.60-1.30); GFR ESTIMATED > 60
[2020-09-16 04:46] LABS: BUN/CREATININE RATIO 16
[2020-09-16 04:47] LABS: MAGNESIUM 2.3 MG/DL (1.6-2.4)
--- NOTE | 2020-09-16 06:12 | Pulmonary Consultation ---
History of Present Illness History of Present Illness Date Seen by Provider: Sep 16, 2020 Time Seen by Provider: 06:07 Date of Admission Allergies and Home Medications Allergies Coded Allergies: Sulfa (Sulfonamide Antibiotics) (Verified Allergy, Unknown, 09/15/20) Home Medications Calcium Carbonate 600 Mg Tablet, 600 MG PO BID, (Reported) Cetirizine HCl 10 Mg Tablet, 10 MG PO DAILY, (Reported) Diltiazem HCl 120 Mg Cap.er.24h, 120 MG PO DAILY, (Reported) Doxycycline Hyclate 100 Mg Tablet, 100 MG PO BID Prescribed by: MACHELLE MARTINEZ on 06/18/19 1238 Glucosamine Sulfate 2Kcl 1,000 Mg Tablet, 1,000 MG PO BID, (Reported) Multivitamin 1 Each Tablet, 1 EACH PO DAILY, (Reported) Warfarin Sodium 5 Mg Tablet, 5 MG PO DAILY, (Reported) TAKES A 5MG EVERY DAY AND EVERY OTHER DAY SHE ADDS A 1MG TAB TO EQUAL 6MG EVERY OTHER DAY. Warfarin Sodium 1 Mg Tablet, 1 MG PO Q48H, (Reported) TAKES A 5MG EVERY DAY AND EVERY OTHER DAY SHE ADDS A 1MG TAB TO EQUAL 6MG EVERY OTHER DAY. Past Pyxbzhk-Wdmbey-Baftvx Hx Patient Social History Alcohol Use: Denies Use Smoking Status: Never a Smoker 2nd Hand Smoke Exposure: No Recent Infectious Disease Expo: No Recent Hopitalizations: No Immunizations Up To Date Date of Pneumonia Vaccine: Jun 27, 2017 Seasonal Allergies Seasonal Allergies: No Past Medical History Surgeries: Yes (OOPHORECTOMY) Gallbladder Respiratory: No Cardiac: Yes Atrial Fibrillation, Hypertension Neurological: No Sexually Transmitted Disease: No Genitourinary: No Gastrointestinal: No Musculoskeletal: No Endocrine: No HEENT: No Cancer: No Psychosocial: No Integumentary: No Blood Disorders: No Family Medical History Aortic aneurysm G8 BROTHER Cardiovascular disease 19 MOTHER FH: uterine cancer G8 SISTER Myocardial infarction 19 FATHER G8 SISTER No Pertinent Family Hx Review of Systems Time Seen by Provider: 06:15 Sepsis Event Evaluation Height, Weight, BMI Height: '" Weight: lbs. oz. kg; 36.00 BMI Method: Exam Exam Vital Signs Date Time Temp Pulse Resp B/P (MAP) Pulse Ox O2 Delivery O2 Flow Rate FiO2 09/16/20 05:00 80 28 93/71 (78) 87 NIV Bilevel 100.00 09/16/20 04:36 36.6 09/16/20 04:00 76 32 114/75 (88) 89 NIV Bilevel 100.00 09/16/20 03:10 92 NIV Bilevel 100 09/16/20 03:00 79 27 102/68 (79) 91 NIV Bilevel 100.00 09/16/20 02:00 77 87/50 (62) 88 NIV Bilevel 100.00 09/16/20 01:02 88 36 91 100.00 09/16/20 01:00 60 09/16/20 01:00 60 18 94/57 (69) 89 NIV Bilevel 100.00 09/16/20 00:00 85 97/56 (70) 86 NIV Bilevel 100.00 09/15/20 23:41 36.0 09/15/20 23:38 81 103/58 09/15/20 23:26 91 NIV Bilevel 90 09/15/20 23:00 86 83/58 (66) 91 NIV Bilevel 90.00 09/15/20 22:05 91 30 96 NIV Bilevel 90.00 09/15/20 22:02 88 36 91 100.00 09/15/20 22:00 86 23 100/53 (69) 87 Vapotherm 40.00 100.00 09/15/20 21:25 91 Vapotherm 40.00 100 09/15/20 21:15 86 110/66 (81) 90 Vapotherm 40.00 100.00 09/15/20 20:42 Vapotherm 40.00 100 09/15/20 19:37 36.3 09/15/20 19:35 86 20 107/55 (72) 92 Vapotherm 40.00 100.00 09/15/20 19:15 85 110/54 (72) 92 Vapotherm 40.00 100.00 09/15/20 19:00 86 09/15/20 18:21 93 Vapotherm 40.00 100 09/15/20 18:02 37.6 93 48 21 09/15/20 18:00 90 18 93/46 (62) 94 Vapotherm 40.00 100.00 09/15/20 17:00 87 24 77/47 (57) 94 Vapotherm 40.00 100.00 09/15/20 16:32 90 Vapotherm 40.00 100 09/15/20 16:08 Vapotherm 40.00 100 09/15/20 16:00 78 27 122/74 (90) 91 Vapotherm 40.00 100.00 09/15/20 15:34 89 09/15/20 15:30 84 20 109/62 (78) 89 Vapotherm 40.00 100.00 09/15/20 15:30 37.3 09/15/20 15:26 37.3 96 Vapotherm 30.00 80.00 09/15/20 15:13 Vapotherm 30.00 80 09/15/20 14:52 88 20 132/63 91 Vapotherm 09/15/20 13:16 Nasal Cannula 4.00 09/15/20 13:10 95 Vapotherm 30.00 90 09/15/20 12:42 37.6 93 22 119/70 (86) 48 Room Air I & O 09/16/20 07:00 Intake Total 560 ml Output Total 1050 ml Balance -490 ml Height & Weight Height: '" Weight: lbs. oz. kg; 36.00 BMI Method: General Appearance: No Apparent Distress, WD/WN, Other (Cyanotic, appears dyspneic and easily winded. On 15 L with simple mask oxygen saturation alesia to 89%. RT was called and will initiate Vapotherm. ABG obtained. She is alert and mentating normally.) Neck: Full Range of Motion, Normal Inspection Respiratory: No Accessory Muscle Use, Respiratory Distress Cardiovascular: Regular Rate, Rhythm, Normal Peripheral Pulses Capillary Refill: Less Than 3 Seconds Extremity: Slow Capillary Refill, Other (Cyanotic) Neurologic/Psychiatric: Alert, Oriented x3 Skin: Normal Color, Warm/Dry, Other (Venous stasis dermatitis right lower extremity) Results Lab Laboratory Tests 09/15/20 12:55 09/16/20 03:55 Assessment/Plan Assessment/Plan acute respiratory failure -BiPAP requiring 100% -Pt is a DNR Acute COVID 19 PNA -CVP is pending Afib -Hold coumadin -Continue Theraputic dose KASH Ahumada DO Sep 16, 2020 06:12
[2020-09-16] MEDS ORDERED: PIPERACILLIN/TAZO 4.5 GM VIAL (ZOSYN) IV ONE (06:21)
[2020-09-16] MEDS ORDERED: PIPERACILLIN/TAZOBACTAM (BULK) 4.5 GM in NS (IVPB) 100 ML IV ONE (06:30)
[2020-09-16] MEDS: ACETAMINOPHEN 325 MG TABLET PO PRN ×2 (06:36→19:00)
[2020-09-16 06:55] LABS: BILIRUBIN,URINE NEGATIVE (NEGATIVE); CLARITY,URINE SL CLOUDY; COLOR,URINE YELLOW; GLUCOSE, URINE (UA) NEGATIVE (NEGATIVE); KETONES,URINE NEGATIVE (NEGATIVE); LEUKOCYTE ESTERASE ,URINE NEGATIVE (NEGATIVE); NITRITE,URINE NEGATIVE (NEGATIVE); PROTEIN,URINE 2+ (NEGATIVE)
[2020-09-16 07:06] LABS: BACTERIA,URINE FEW /HPF; RBC,URINE >100 /HPF; SQUAMOUS EPITHELIAL CELL,UR 0-2 /HPF; WBC,URINE RARE /HPF
[2020-09-16] MEDS ORDERED: POTASSIUM PHOSPHATE INJ 15 MM in NS (IVPB) 250 ML IV ONE (08:00)
[2020-09-16] MEDS: PANTOPRAZOLE 40 MG (PROTONIX) VIAL IV SCH (08:16)
--- NOTE | 2020-09-16 08:37 | Diagnostic Imaging Report ---
INDICATION: Dyspnea. TECHNIQUE/COMPARISON: Frontal chest obtained at 4:09 AM and compared to yesterday. FINDINGS: There is prominent cardiomegaly. There are patchy infiltrates in the right upper lobe and base as well as in the left mid to lower lung field, similar to the prior study. There is no pneumothorax or gross pleural fluid. IMPRESSION: Cardiomegaly. Unchanged patchy bilateral infiltrates compared to yesterday. Dictated by: Dictated on workstation # [id number]
--- NOTE | 2020-09-16 10:14 | Consultation-Cardiology ---
HPI-Cardiology Cardiology Consultation: Date of Consultation 09/16/20 Time Seen by a Provider: 09:45 Date of Admission 09-15-20 Attending Physician Sisi Kong DO Admitting Physician Joel Crawley MD Consulting Physician JIMMY LANDON HPI: Chief Complaint: Bradycardia Ms. Acosta is a 75 yr old female admitted to ICU 4 from the ED with hypoxia and COVID (+). She is currently on Bi-pap. She reports she has had increasing SOB, chills, diarrhea for approx the last 6 days which has been progressive. She denies any c/o CP, palpitations, syncope or near syncope. She reports she recently had cellulitis in her right leg for which she is following with her PCP in [place], [place]. She reports she has had bright red blood in her stools for the last 2 days which she feels is d/t her chronic hemorrhoid. She reports she feels her SOB has improved today. Review of Systems-Cardiology Review of Systems Constitutional: chills; No fever; malaise Eyes: No vision change Ears/Nose/Throat: No epistaxis, No recent hearing loss Respiratory: As described under HPI Cardiovascular: As described under HPI Gastrointestinal: As described under HPI, diarrhea; No vomiting Genitourinary: No urine frequency changes, No urine coloration changes Skin: other (cellulitis RLE with abrasion that is healing) Psychiatric/Neurological: No anxiety, No depression, No seizure, No focal weakness, No syncope Hematologic: No bleeding abnormalities OSB-Itfpgd-Oqlsfr Hx Patient Social History Marrital Status: single Employed/Student: retired Smoking Status: Never a Smoker 2nd Hand Smoke Exposure: No Immunizations Up To Date Date of Pneumonia Vaccine: Jun 27, 2017 Past Medical History PMH As described under Assessment. Family Medical History Family Medical History: She reports her father, mother and a sister had CAD. She reports a brother who had AAA. Family History: 19 FATHER Myocardial infarction 19 MOTHER Cardiovascular disease G8 BROTHER Aortic aneurysm G8 SISTER Myocardial infarction G8 SISTER FH: uterine cancer Allergies and Home Medications Allergies Coded Allergies: Sulfa (Sulfonamide Antibiotics) (Verified Allergy, Unknown, 09/15/20) Home Medications Betamethasone/Propylene Glyc 15 Gm Cream..g., 1 APPLIC TOP BID PRN for RASH, (Reported) Calcium Carbonate 600 Mg Tablet, 600 MG PO BID, (Reported) Cetirizine HCl 10 Mg Tablet, 10 MG PO DAILY, (Reported) Diltiazem HCl 120 Mg Cap.er.24h, 120 MG PO DAILY, (Reported) Furosemide 20 Mg Tablet, 20 MG PO DAILY, (Reported) Glucosamine Sulfate 2Kcl 1,000 Mg Tablet, 1,000 MG PO BID, (Reported) Hydroxyzine HCl 50 Mg Tablet, 50 MG PO HS PRN for SLEEP, (Reported) Multivitamin 1 Each Tablet, 1 EACH PO DAILY, (Reported) Warfarin Sodium 1 Mg Tablet, 0.5 MG PO E,TUE, (Reported) TAKES OF A 1MG ALONG WITH 3MG TO EQUAL 3.5MG ON TUE & FRI Warfarin Sodium 3 Mg Tablet, 3 MG PO DAILY, (Reported) Physical Exam-Cardiology Physical Exam Vital Signs/I&O 09/16/20 09/16/20 09/16/20 09/16/20 20:00 20:07 21:00 21:27 Pulse 101 87 87 Resp 27 39 31 B/P (MAP) 108/64 (85) 112/80 (94) Pulse Ox 94 94 94 95 O2 Delivery NIV Bilevel NIV Bilevel NIV Bilevel O2 Flow Rate 100.00 100.00 100.00 FiO2 100 09/16/20 09/16/20 09/16/20 09/17/20 22:00 23:00 23:20 00:00 Pulse 90 75 68 Resp 25 24 30 B/P (MAP) 110/75 (92) 98/63 (75) 117/78 (89) Pulse Ox 88 88 90 87 O2 Delivery NIV Bilevel NIV Bilevel NIV Bilevel NIV Bilevel O2 Flow Rate 100.00 100.00 100.00 FiO2 100 09/17/20 09/17/20 09/17/20 09/17/20 01:00 01:00 02:00 02:17 Pulse 61 61 66 60 Resp 13 29 32 B/P (MAP) 107/74 (88) 122/83 (98) Pulse Ox 85 87 91 O2 Delivery NIV Bilevel NIV Bilevel O2 Flow Rate 100.00 100.00 100.00 09/17/20 09/17/20 09/17/20 09/17/20 03:00 03:21 04:00 04:03 Temp 36.3 Pulse 62 60 Resp 29 30 B/P (MAP) 118/73 (88) 136/86 (111) Pulse Ox 88 86 86 O2 Delivery NIV Bilevel NIV Bilevel NIV Bilevel O2 Flow Rate 100.00 100.00 FiO2 100 09/17/20 09/17/20 09/17/20 05:00 06:00 07:13 Pulse 156 101 59 Resp 28 30 38 B/P (MAP) 161/91 (127) 137/88 (97) Pulse Ox 86 87 89 O2 Delivery NIV Bilevel NIV Bilevel O2 Flow Rate 100.00 100.00 100.00 09/17/20 00:00 Intake Total 1861 ml Output Total 900 ml Balance 961 ml Capillary Refill : Less Than 3 Seconds Constitutional: AAO x 3, well-developed, well-nourished HEENT: PERRL, hearing is well preserved, oral hygience is good Neck: No carotid bruit; carotid pulses are 2 + bilaterally Respiratory: No accessory muscle use, No respiratory distress; chest expansion is symmetric, chest is bilaterally symmetric, other (fair air entry) Cardiovascular: irregularly irregular; No JVD; S1 and S2 Gastrointestinal: No tender; soft, round, audible bowel sounds Extremities: other (RLE with redness, warm to the touch, linear abrasion, no drainage noted), no lower extremity edema bilateral Neurologic/Psychiatric: grossly intact (moves all extremities) Skin: other (see above) Data Review Labs Laboratory Tests 09/17/20 04:14: White Blood Count 3.7L, Red Blood Count 4.69, Hemoglobin 14.9, Hematocrit 43, Mean Corpuscular Volume 92, Mean Corpuscular Hemoglobin 32, Mean Corpuscular Hemoglobin Concent 35, Red Cell Distribution Width 12.8, Platelet Count 114L, Mean Platelet Volume 9.7, Immature Granulocyte % (Auto) 0, Neutrophils (%) (Auto) 86H, Lymphocytes (%) (Auto) 8L, Monocytes (%) (Auto) 6, Eosinophils (%) (Auto) 0, Basophils (%) (Auto) 0, Neutrophils # (Auto) 3.2, Lymphocytes # (Auto) 0.3L, Monocytes # (Auto) 0.2, Eosinophils # (Auto) 0.0, Basophils # (Auto) 0.0, Immature Granulocyte # (Auto) 0.0, Sodium Level 138, Potassium Level 4.0, Chloride Level 108H, Carbon Dioxide Level 19L, Anion Gap 11, Blood Urea Nitrogen 13, Creatinine 0.72, Estimat Glomerular Filtration Rate > 60, BUN/Creatinine Ratio 18, Glucose Level 163H, Calcium Level 8.1L, Phosphorus Level 2.4, Magnesium Level 2.5H Microbiology 09/16/20 Influenza Types A,B Antigen (RUSLAN) - Final, Complete Radiology NAME: CHACHA ACOSTA [facility] REC#: [id number] PT STATUS: ADM IN : 1945 PHYSICIAN: SISI KONG DO ADMIT DATE: 09/15/20/ICU Signed Date of Exam:09/16/20 CHEST 1 VIEW, AP/PA ONLY INDICATION: Dyspnea. TECHNIQUE/COMPARISON: Frontal chest obtained at 4:09 AM and compared to yesterday. FINDINGS: There is prominent cardiomegaly. There are patchy infiltrates in the right upper lobe and base as well as in the left mid to lower lung field, similar to the prior study. There is no pneumothorax or gross pleural fluid. IMPRESSION: Cardiomegaly. Unchanged patchy bilateral infiltrates compared to yesterday. Dictated by: Dictated on workstation # [id number] Dict: 09/16/20 0833 Trans: 09/16/20 0932 [id number] Interpreted by: SANDRA CRANDALL MD Electronically signed by: SANDRA CRANDALL MD 09/16/20 0932 ECG Impression ECG Initial ECG Impression: Atrial Fibrillation A/P-Cardiology Assessment/Admission Diagnosis Acute respiratory distress secondary to COVID (+) pneumonia requiring Bi-pap support COVID (+) pneumonia - management per medical/pulmonary services Chronic a-fib with controlled rate - follows with cardiology services at [facility] Reported transient bradycardia - although none seen on tele strips available, likely secondary to hypoxia Chronic OAC with warfarin - subtherapeutic INR HTN HLD Hypokalemia - replace Discussion and Recomendations Acute respiratory distress requiring BI-pap support secondary to COVID (+) pneumonia - management per pulmonary/medical services Reported transient bradycardia - although no documentation seen on tele strips available - continue to monitor Chronic a-fib for which she follow with cardiology services at [facility] - rate controlled Chronic OAC with coumadin - subtherapeutic INR - cover with Lovenox until INR greater than 2.0 Request records from [facility] Monitor lab closely Replace electrolytes as indicated Further recs will be based on her hospital course We would like to thank medical services for this consult JIMMY PADRON Sep 16, 2020 10:14
[2020-09-16 10:32] VITALS: BP 122/81
--- NOTE | 2020-09-16 11:43 | Progress Note - Hospitalist ---
IVONNE MOORE MED STUDENT 09/16/20 1143: Subjective HPI/CC On Admission Date Seen by Provider: Sep 16, 2020 Time Seen by Provider: 08:35 CC: COVID-19 PNA with hypoxia HPI: This is a 75yoWF clinic patient of [facility] who had yet to obtain the COVID-19 vaccine due to "wanted to wait to see if there were any side effects" who presented to the ER with N/V and dyspnea and found to have O2 sat of 59%. Her sister had COVID and she spent some time with her last week. Patient feels better on 100" Vapotherm. ICU admit recommended. Patient denies pain. Subjective/Events-last exam Pt awake and eating breakfast upon entry. Pt able to complete sentences but breathes heavier after. Pt notes feeling better than yesterday stating that she could barely keep her head up yesterday. Pt also notes diarrhea has stopped. Pt is uncomfortable but managing on the vapotherm via nasal cannula. Pt denies any complaints other than her breathing including cough and sputum production. Pt is very pleasant to converse with. Review of Systems General: No Chills; Fatigue HEENT: No Head Aches, No Dysphasia Pulmonary: Dyspnea, Cough Cardiovascular: No: Chest Pain, Palpitations Gastrointestinal: No: Nausea, Vomiting, Abdominal Pain, Diarrhea Genitourinary: No Dysuria, No Hematuria Musculoskeletal: back pain, leg pain Neurological: Weakness; No: Numbness, Confusion Focused Exam Lactate Level 09/15/20 12:55: Lactic Acid Level 1.48 09/16/20 06:45: Lactic Acid Level 1.32 Objective Exam Vital Signs Vital Signs Date Time Temp Pulse Resp B/P (MAP) Pulse Ox O2 Delivery O2 Flow Rate FiO2 09/16/20 11:00 85 36 126/94 (105) 91 NIV Bilevel 100.00 09/16/20 07:45 100 09/16/20 07:29 36.0 Capillary Refill : Less Than 3 Seconds General Appearance: WD/WN, Mild Distress HEENT: PERRL/EOMI, Moist Mucous Membranes Neck: Normal Inspection, Supple Respiratory: Chest Non Tender, No Accessory Muscle Use, Crackles, Decreased Breath Sounds, Wheezing Cardiovascular: No No Edema, No No Gallop, No No Murmur; Irregularly Irregular Gastrointestinal: No Normal Bowel Sounds, No Non Tender, No Soft Rectal: Deferred Extremity: No Normal Inspection, No Non Tender, No No Calf Tenderness; Pedal Edema (Left foot) Neurologic/Psychiatric: Alert, Oriented x3, No Motor/Sensory Deficits, Normal Mood/Affect Skin: Normal Color, Warm/Dry Results/Procedures Lab Laboratory Tests 09/15/20 12:55 09/16/20 03:55 Patient resulted labs reviewed. Assessment/Plan Assessment and Plan Assess & Plan/Chief Complaint ASSESSMENT: COVID + Hypoxia - 86% O2 sat Chronic Afib Leukopenia - 1.8 Thrombocytopenia - 114 PLAN: Maintain on vapotherm, abx (azithromycin & zosyn), and dexamethasone Bipap when necessary Convalescent plasma Monitor labs Appreciate Dr. Wright Consult cardiology (Dr. Quevedo) CXR indicates cardiomegaly with bilateral perihilar infiltrates SISI KONG DO 09/17/20 0604: Subjective Subjective/Events-last exam Pt feels much better Maintain on biPAP and switching back and forth to vapotherm Dexamethasone maintained Convalescent plasma ordered Saturation is anywhere from 86 to 92 percent Lovenox maintained Cardiology consult appreciated Review of Systems General: Fatigue Pulmonary: Dyspnea Objective Exam General Appearance: No Apparent Distress, WD/WN, Chronically ill Respiratory: Decreased Breath Sounds, Wheezing Cardiovascular: Irregularly Irregular, Tachycardia Neurologic/Psychiatric: Alert, Oriented x3, No Motor/Sensory Deficits, Normal Mood/Affect Assessment/Plan Assessment and Plan Assess & Plan/Chief Complaint Monitor O2 Vapotherm Cardiology appreciated Supervisory-Addendum Brief Verification & Attestation Participated in pt care: history, MDM, physical Personally performed: exam, history, MDM, supervision of care Care discussed with: Medical Student Procedures: n/a Results interpretation: Verified all documentation Verification and Attestation of Medical Student E/M Service A medical student performed and documented this service in my presence. I reviewed and verified all information documented by the medical student and made modifications to such information, when appropriate. I personally performed the physical exam and medical decision making. Sisi Kong, Sep 17, 2020,06:02 IVONNE MOORE MED STUDENT Sep 16, 2020 11:43 SISI KONG DO Sep 17, 2020 06:04
[2020-09-16] MEDS: PIPERACILLIN/TAZOBACTAM (BULK) 4.5 GM in NS (IVPB) 100 ML IV SCH ×2 (12:48→19:53)
[2020-09-16] MEDS: dexAMETHasone 6 MG TAB (DECADRON) PO SCH (14:36)
[2020-09-16] MEDS: AZITHROMYCIN 250 MG TAB (ZITHROMAX) PO SCH (14:36)
[2020-09-16 14:45] VITALS: BP 114/74
[2020-09-16] MEDS: LACTATED RINGERS 1,000 ML IV SCH (15:46)
[2020-09-16] MEDS ORDERED: BETA15CR14 TOP (16:10)
[2020-09-16] MEDS ORDERED: FURO20TA4 PO (16:10)
[2020-09-16] MEDS ORDERED: HYDR50TA76 PO (16:10)
[2020-09-16] MEDS ORDERED: WARF3TAB56 PO (16:10)
--- NOTE | 2020-09-16 16:41 | Consultation-Cardiology ---
HPI-Cardiology Cardiology Consultation: Date of Consultation 09/16/20 Time Seen by a Provider: 15:00 Date of Admission Attending Physician Sisi Mack DO Admitting Physician Joel Crawley MD Consulting Physician WESTON MARTE MD, MA, FACP, FACC, FSCAI, CCDS HPI: Chief Complaint: Reason for consultation: Bradycardia HPI Ms. Gar is a 75 yr old female admitted to ICU 4 from the ED with hypoxia and COVID (+). She is currently on Bi-pap. She reports she has had increasing SOB, chills, diarrhea for approx the last 6 days which has been progressive. She denies any c/o CP, palpitations, syncope or near syncope. She reports she recently had cellulitis in her right leg for which she is following with her PCP in [place], [place]. She reports she has had bright red blood in her stools for the last 2 days which she feels is d/t her chronic hemorrhoid. She reports she feels her SOB has improved today. Review of Systems-Cardiology Review of Systems Constitutional: chills; No fever; malaise Eyes: No vision change Ears/Nose/Throat: No epistaxis, No recent hearing loss Respiratory: As described under HPI Cardiovascular: As described under HPI Gastrointestinal: As described under HPI, diarrhea; No vomiting Genitourinary: No urine frequency changes, No urine coloration changes Skin: other (cellulitis RLE with abrasion that is healing) Psychiatric/Neurological: No anxiety, No depression, No seizure, No focal weakness, No syncope Hematologic: No bleeding abnormalities ZRT-Roldim-Nimwet Hx Patient Social History Marrital Status: single Employed/Student: retired Smoking Status: Never a Smoker 2nd Hand Smoke Exposure: No Immunizations Up To Date Date of Pneumonia Vaccine: Jun 27, 2017 Past Medical History PMH As described under Assessment. Family Medical History Family Medical History: She reports her father, mother and a sister had CAD. She reports a brother who had AAA. Family History: Aortic aneurysm G8 BROTHER Cardiovascular disease 19 MOTHER FH: uterine cancer G8 SISTER Myocardial infarction 19 FATHER G8 SISTER Allergies and Home Medications Allergies Coded Allergies: Sulfa (Sulfonamide Antibiotics) (Verified Allergy, Unknown, 09/15/20) Home Medications Betamethasone/Propylene Glyc 15 Gm Cream..g., 1 APPLIC TOP BID PRN for RASH, (Reported) Calcium Carbonate 600 Mg Tablet, 600 MG PO BID, (Reported) Cetirizine HCl 10 Mg Tablet, 10 MG PO DAILY, (Reported) Diltiazem HCl 120 Mg Cap.er.24h, 120 MG PO DAILY, (Reported) Furosemide 20 Mg Tablet, 20 MG PO DAILY, (Reported) Glucosamine Sulfate 2Kcl 1,000 Mg Tablet, 1,000 MG PO BID, (Reported) Hydroxyzine HCl 50 Mg Tablet, 50 MG PO HS PRN for SLEEP, (Reported) Multivitamin 1 Each Tablet, 1 EACH PO DAILY, (Reported) Warfarin Sodium 1 Mg Tablet, 0.5 MG PO TUE,TUE, (Reported) TAKES OF A 1MG ALONG WITH 3MG TO EQUAL 3.5MG ON TUE & FRI Warfarin Sodium 3 Mg Tablet, 3 MG PO DAILY, (Reported) Patient Home Medication List Home Medication List Reviewed: Yes Physical Exam-Cardiology Physical Exam Vital Signs/I&O 09/16/20 09/16/20 09/16/20 09/16/20 05:00 06:00 06:29 07:00 Pulse 80 79 82 71 Resp 28 19 28 B/P (MAP) 93/71 (78) 114/74 (87) Pulse Ox 87 91 89 O2 Delivery NIV Bilevel NIV Bilevel NIV Bilevel O2 Flow Rate 100.00 100.00 100.00 09/16/20 09/16/20 09/16/20 09/16/20 07:29 07:45 08:00 08:28 Temp 36.0 Pulse 79 Resp 18 B/P (MAP) 121/67 (85) Pulse Ox 93 93 O2 Delivery NIV Bilevel NIV Bilevel Vapotherm O2 Flow Rate 100.00 40.00 100.00 FiO2 100 09/16/20 09/16/20 09/16/20 09/16/20 09:00 09:25 10:00 10:32 Pulse 73 78 75 Resp 36 36 37 B/P (MAP) 108/69 (82) 122/81 (95) Pulse Ox 85 92 92 O2 Delivery Vapotherm NIV Bilevel NIV Bilevel O2 Flow Rate 40.00 100.00 100.00 100.00 100.00 09/16/20 09/16/20 09/16/20 09/16/20 11:00 12:00 12:30 12:57 Pulse 85 82 91 Resp 36 41 B/P (MAP) 126/94 (105) 116/75 (89) Pulse Ox 91 90 93 O2 Delivery NIV Bilevel NIV Bilevel NIV Bilevel O2 Flow Rate 100.00 100.00 FiO2 100 09/16/20 09/16/20 09/16/20 09/16/20 13:00 14:00 14:39 14:45 Temp 35.0 Pulse 73 68 73 Resp 43 25 36 B/P (MAP) 115/69 (84) 114/74 (87) Pulse Ox 90 96 93 O2 Delivery NIV Bilevel NIV Bilevel O2 Flow Rate 100.00 100.00 100.00 09/16/20 09/16/20 09/16/20 09/16/20 15:00 15:30 15:49 16:00 Temp 36.1 Pulse 84 82 Resp 18 20 B/P (MAP) 116/78 (91) 112/81 (91) Pulse Ox 93 96 90 O2 Delivery NIV Bilevel NIV Bilevel NIV Bilevel O2 Flow Rate 100.00 100.00 FiO2 100 09/16/20 00:00 Intake Total 560 ml Output Total 1050 ml Balance -490 ml Capillary Refill : Less Than 3 Seconds Constitutional: AAO x 3, well-developed, well-nourished HEENT: PERRL, hearing is well preserved, oral hygience is good Neck: No carotid bruit; carotid pulses are 2 + bilaterally Respiratory: No accessory muscle use, No respiratory distress; chest expansion is symmetric, chest is bilaterally symmetric, other (fair air entry) Cardiovascular: irregularly irregular; No JVD; S1 and S2 Gastrointestinal: No tender; soft, round, audible bowel sounds Extremities: other (RLE with redness, warm to the touch, linear abrasion, no drainage noted), no lower extremity edema bilateral Neurologic/Psychiatric: grossly intact (moves all extremities) Skin: other (see above) Data Review Labs Laboratory Tests 09/16/20 00:45: Urine Color YELLOW, Urine Clarity SL CLOUDY, Urine pH 6.0, Urine Specific Calvin >=1.030, Urine Protein 2+H, Urine Glucose (UA) NEGATIVE, Urine Ketones NEGATIVE, Urine Nitrite NEGATIVE, Urine Bilirubin NEGATIVE, Urine Urobilinogen 0.2, Urine Leukocyte Esterase NEGATIVE, Urine RBC (Auto) 3+H, Urine RBC >100H, Urine WBC RARE, Urine Squamous Epithelial Cells 0-2, Urine Crystals NONE, Urine Bacteria FEWH, Urine Casts NONE, Urine Mucus NEGATIVE, Urine Culture Indicated NO 09/16/20 03:55: White Blood Count 1.8L, Red Blood Count 4.67, Hemoglobin 14.6, Hematocrit 43, Mean Corpuscular Volume 92, Mean Corpuscular Hemoglobin 31, Mean Corpuscular Hem oglobin Concent 34, Red Cell Distribution Width 12.8, Platelet Count 114L, Mean Platelet Volume 9.9, Immature Granulocyte % (Auto) 1, Neutrophils (%) (Auto) 80H , Lymphocytes (%) (Auto) 13, Monocytes (%) (Auto) 7, Eosinophils (%) (Auto) 0, Basophils (%) (Auto) 0, Neutrophils # (Auto) 1.4L, Lymphocytes # (Auto) 0.2L, Monocytes # (Auto) 0.1, Eosinophils # (Auto) 0.0, Basophils # (Auto) 0.0, Immature Granulocyte # (Auto) 0.0, Prothrombin Time 21.2H, INR Comment 1.8H, Sodium Level 139, Potassium Level 3.6, Chloride Level 108H, Carbon Dioxide Level 19L, Anion Gap 12, Blood Urea Nitrogen 12, Creatinine 0.73, Estimat Glomerular Filtration Rate > 60, BUN/Creatinine Ratio 16, Glucose Level 162H, Calcium Level 8.0L, Phosphorus Level 2.6, Magnesium Level 2.3 09/16/20 04:25: Blood Gas Puncture Site RIGHT RADIAL, Blood Gas Patient Temperature 36.4, Arterial Blood pH 7.49H, Arterial Blood Partial Pressure CO2 28L, Arterial Blood Partial Pressure O2 78L, Arterial Blood HCO3 21L, Arterial Blood Total CO2 22.3, Arterial Blood Oxygen Saturation 94, Arterial Blood Base Excess -1.6, Noble Test YES-POS, Blood Gas Ventilator Setting NO, Blood Gas Inspired Oxygen 100% 09/16/20 06:45: D-Dimer 2.00H, Lactic Acid Level 1.32 Microbiology 09/16/20 Influenza Types A,B Antigen (RUSLAN) - Final, Complete A/P-Cardiology Assessment/Admission Diagnosis Acute respiratory distress secondary to COVID (+) pneumonia requiring Bi-pap support COVID (+) pneumonia - management per medical/pulmonary services Chronic a-fib with controlled rate - follows with cardiology services at [facility] in [place] Reported transient bradycardia - although none seen on tele strips available - likely secondary to hypoxia Chronic OAC with warfarin - subtherapeutic INR HTN HLD Hypokalemia - replace Discussion and Recomendations Acute respiratory distress requiring BI-pap support secondary to COVID (+) pneumonia - management per Pulmonary and Medical services Reported transient bradycardia - although no documentation seen on tele strips available - continue to monitor Chronic a-fib for which she follow with cardiology services at [facility] in [place] - rate controlled Chronic OAC with coumadin - subtherapeutic INR - cover with Lovenox until INR greater than 2.0 Request records from [facility] Monitor lab closely Replace electrolytes as indicated Further recs will be based on her hospital course We would like to thank Medical services for this consult WESTON MARTE MD FACP FACC CCDS Sep 16, 2020 16:41
[2020-09-16 18:45] VITALS: BP 123/88
[2020-09-16 21:27] VITALS: BP 112/80
[2020-09-17] VITALS (8 sets, daily range): BP systolic 110–154; BP diastolic 60–98
[2020-09-17] MEDS: RT-ALBUTEROL INHALER HFA (VENTOLIN HFA) 18 GM IH SCH ×4 (02:17→21:07)
[2020-09-17] MEDS: ENOXAPARIN 100 MG/1 ML (LOVENOX) SYR SC SCH ×2 (03:19→15:47)
[2020-09-17] MEDS: PIPERACILLIN/TAZOBACTAM (BULK) 4.5 GM in NS (IVPB) 100 ML IV SCH ×3 (03:19→19:49)
[2020-09-17 04:19] LABS: BASOPHILS % (AUTO) 0 % (0-10); EOSINOPHILS % (AUTO) 0 % (0-10); HEMATOCRIT 43 % (35-52); HEMOGLOBIN 14.9 g/dL (11.5-16.0); LYMPHOCYTES # (AUTO) 0.3 10^3/uL (1.0-4.0); LYMPHOCYTES % (AUTO) 8 % (12-44); MEAN CORPUSCULAR HEMOGLOBIN 32 pg (25-34); MEAN CORPUSCULAR HGB CONC 35 g/dL (32-36); MEAN CORPUSCULAR VOLUME 92 fL (80-99); MEAN PLATELET VOLUME 9.7 fL (9.0-12.2); MONOCYTES # (AUTO) 0.2 10^3/uL (0.0-1.0); MONOCYTES % (AUTO) 6 % (0-12); NEUTROPHILS # (AUTO) 3.2 10^3/uL (1.8-7.8); NEUTROPHILS % (AUTO) 86 % (42-75); PLATELET COUNT 114 10^3/uL (130-400); WHITE BLOOD COUNT 3.7 10^3/uL (4.3-11.0)
[2020-09-17 04:29] LABS: CHLORIDE 108 MMOL/L (98-107); SODIUM 138 MMOL/L (135-145)
[2020-09-17 04:30] LABS: CALCIUM 8.1 MG/DL (8.5-10.1)
[2020-09-17 04:31] LABS: GLUCOSE 163 MG/DL (70-105)
[2020-09-17 04:32] LABS: CARBON DIOXIDE 19 MMOL/L (21-32)
[2020-09-17 04:35] LABS: CREATININE SERUM 0.72 MG/DL (0.60-1.30); GFR ESTIMATED > 60; PHOSPHORUS 2.4 MG/DL (2.3-4.7)
[2020-09-17 04:36] LABS: BUN/CREATININE RATIO 18
[2020-09-17 04:37] LABS: MAGNESIUM 2.5 MG/DL (1.6-2.4)
--- NOTE | 2020-09-17 05:02 | Pulmonary Progress Note ---
Subjective Time Seen by a Provider: 04:58 Subjective/Events-last exam Pt is requiring more oxygen via BiPAP. Sepsis Event Evaluation Height, Weight, BMI Height: '" Weight: lbs. oz. kg; 36.00 BMI Method: Focused Exam Lactate Level 09/15/20 12:55: Lactic Acid Level 1.48 09/16/20 06:45: Lactic Acid Level 1.32 Exam Exam Vital Signs Date Time Temp Pulse Resp B/P (MAP) Pulse Ox O2 Delivery O2 Flow Rate FiO2 09/17/20 04:03 86 NIV Bilevel 100 09/17/20 03:21 36.3 09/17/20 03:00 62 29 118/73 (88) 88 NIV Bilevel 100.00 09/17/20 02:17 60 32 91 100.00 09/17/20 02:00 66 29 122/83 (98) 87 NIV Bilevel 100.00 09/17/20 01:00 61 13 107/74 (88) 85 NIV Bilevel 100.00 09/17/20 01:00 61 09/17/20 00:00 68 30 117/78 (89) 87 NIV Bilevel 100.00 09/16/20 23:20 90 NIV Bilevel 100 09/16/20 23:00 75 24 98/63 (75) 88 NIV Bilevel 100.00 09/16/20 22:00 90 25 110/75 (92) 88 NIV Bilevel 100.00 09/16/20 21:27 87 31 95 100.00 09/16/20 21:00 87 39 112/80 (94) 94 NIV Bilevel 100.00 09/16/20 20:07 94 NIV Bilevel 100 09/16/20 20:00 101 27 108/64 (85) 94 NIV Bilevel 100.00 09/16/20 19:54 36.0 88 24 109/80 (90) 94 NIV Bilevel 100.00 09/16/20 19:43 35.1 09/16/20 19:00 95 09/16/20 19:00 85 19 109/80 (85) 95 NIV Bilevel 100.00 09/16/20 18:45 82 36 93 100.00 09/16/20 18:00 86 15 123/88 (100) 85 Vapotherm 40.00 100.00 09/16/20 17:20 Vapotherm 40.00 100.00 09/16/20 17:00 79 17 123/85 (98) 92 NIV Bilevel 100.00 09/16/20 16:00 82 20 112/81 (91) 90 NIV Bilevel 100.00 09/16/20 15:49 36.1 09/16/20 15:30 96 NIV Bilevel 100 09/16/20 15:00 84 18 116/78 (91) 93 NIV Bilevel 100.00 09/16/20 14:45 73 36 93 100.00 09/16/20 14:39 35.0 09/16/20 14:00 68 25 114/74 (87) 96 NIV Bilevel 100.00 09/16/20 13:00 73 43 115/69 (84) 90 NIV Bilevel 100.00 09/16/20 12:57 93 NIV Bilevel 100 09/16/20 12:30 91 09/16/20 12:00 82 41 116/75 (89) 90 NIV Bilevel 100.00 09/16/20 11:00 85 36 126/94 (105) 91 NIV Bilevel 100.00 09/16/20 10:32 75 37 92 100.00 09/16/20 10:00 78 36 122/81 (95) 92 NIV Bilevel 100.00 09/16/20 09:25 NIV Bilevel 100.00 09/16/20 09:00 73 36 108/69 (82) 85 Vapotherm 40.00 100.00 09/16/20 08:28 Vapotherm 40.00 100.00 09/16/20 08:00 79 18 121/67 (85) 93 NIV Bilevel 100.00 09/16/20 07:45 93 NIV Bilevel 100 09/16/20 07:29 36.0 09/16/20 07:00 71 28 89 NIV Bilevel 100.00 09/16/20 06:29 82 09/16/20 06:00 79 19 114/74 (87) 91 NIV Bilevel 100.00 09/16/20 05:00 80 28 93/71 (78) 87 NIV Bilevel 100.00 I & O 09/17/20 07:00 Intake Total 2736 ml Output Total 1175 ml Balance 1561 ml Height & Weight Height: '" Weight: lbs. oz. kg; 36.00 BMI Method: General Appearance: WD/WN, Mild Distress HEENT: PERRL/EOMI, Moist Mucous Membranes Neck: Normal Inspection, Supple Respiratory: Chest Non Tender, No Accessory Muscle Use, Crackles, Decreased Breath Sounds, Wheezing Cardiovascular: No No Edema, No No Gallop, No No Murmur; Irregularly Irregular Capillary Refill: Less Than 3 Seconds Extremity: No Normal Inspection, No Non Tender, No No Calf Tenderness; Pedal Edema (Left foot) Neurologic/Psychiatric: Alert, Oriented x3, No Motor/Sensory Deficits, Normal Mood/Affect Skin: Normal Color, Warm/Dry Lymphatic: No Adenopathy Results Lab Laboratory Tests 09/15/20 12:55 09/16/20 03:55 09/17/20 04:14 Assessment/Plan Assessment/Plan acute respiratory failure -BiPAP requiring 100% -Give 40mg of Lasix x 1 -Pt is a DNR Acute COVID 19 PNA -CVP is pending -Change decadron to 10mg IV daily Afib -Hold coumadin -Continue Theraputic dose lovenox Pt's prognosis is poor. I called and updated pt's on patients current condition and prognosis. KASH JOINER DO Sep 17, 2020 05:02
--- NOTE | 2020-09-17 07:45 | Diagnostic Imaging Report ---
INDICATION: Dyspnea. COMPARISON: 09/16/2020 FINDINGS: Single frontal radiographic view of the chest was obtained and demonstrates mild cardiomegaly. Pulmonary vasculature is within normal limits. Lungs again show bilateral infiltrate, although there has been overall slight interval improved aeration. There is no large effusion or pneumothorax. Osseous structures show no gross acute abnormalities. IMPRESSION: 1. Persistent, but overall improved bilateral infiltrate. 2. Mild cardiomegaly. Dictated by: Dictated on workstation # [id number]
[2020-09-17] MEDS ORDERED: FUROSEMIDE 40 MG/4 ML INJ (LASIX) IVP SCH (09:00)
[2020-09-17] MEDS ORDERED: FUROSEMIDE 40 MG/4 ML INJ (LASIX) IVP ONE (09:00)
[2020-09-17] MEDS: PANTOPRAZOLE 40 MG (PROTONIX) VIAL IV SCH (09:53)
--- NOTE | 2020-09-17 12:15 | Progress Note - Hospitalist ---
IVONNE MOORE MED STUDENT 09/17/20 1215: Subjective HPI/CC On Admission Date Seen by Provider: Sep 17, 2020 Time Seen by Provider: 09:15 CC: COVID-19 PNA with hypoxia HPI: This is a 75yoWF clinic patient of [facility] who had yet to obtain the COVID-19 vaccine due to "wanted to wait to see if there were any side effects" who presented to the ER with N/V and dyspnea and found to have O2 sat of 59%. Her sister had COVID and she spent some time with her last week. Patient feels better on 100" Vapotherm. ICU admit recommended. Patient denies pain. Subjective/Events-last exam Pt is awake and upright in bed upon entry. Pt is now maxed out on BiPap continuously. Pt is difficult to converse with due to BiPap/ SOB, but able to give thumbs up/ down and nods. Pt notes she is doing as well as [she] can be. Pt BiPap removed for a drink of water and lips were deep blue in color. No acute events over night. Review of Systems General: No Chills; Fatigue HEENT: No Head Aches, No Dysphasia Pulmonary: Dyspnea, Cough Cardiovascular: No: Chest Pain, Palpitations Gastrointestinal: No: Nausea, Vomiting, Abdominal Pain Genitourinary: No Dysuria, No Hematuria Musculoskeletal: No: back pain, leg pain Neurological: No: Weakness, Confusion Focused Exam Lactate Level 09/15/20 12:55: Lactic Acid Level 1.48 09/16/20 06:45: Lactic Acid Level 1.32 Objective Exam Vital Signs Vital Signs Date Time Temp Pulse Resp B/P (MAP) Pulse Ox O2 Delivery O2 Flow Rate FiO2 09/17/20 12:00 63 31 157/122 (134) 93 NIV Bilevel 100.00 09/17/20 08:00 100 09/17/20 03:21 36.3 Capillary Refill : Less Than 3 Seconds General Appearance: WD/WN, Mild Distress HEENT: PERRL/EOMI, Moist Mucous Membranes Neck: Normal Inspection, Supple Respiratory: Chest Non Tender, No Accessory Muscle Use, Crackles, Respiratory D istress, Wheezing Cardiovascular: No Edema, No Gallop, No Murmur, Irregularly Irregular Gastrointestinal: Normal Bowel Sounds, Non Tender, Soft Rectal: Deferred Back: No Vertebral Tenderness Extremity: Normal Inspection, Normal Range of Motion, Non Tender, No Calf Tenderness, Pedal Edema (Slighty on left ) Neurologic/Psychiatric: Alert, Oriented x3, No Motor/Sensory Deficits, Normal Mood/Affect Skin: Warm/Dry, Cyanosis, Pallor Results/Procedures Lab Laboratory Tests 09/17/20 04:14 Patient resulted labs reviewed. Assessment/Plan Assessment and Plan Assess & Plan/Chief Complaint ASSESSMENT: COVID + Hypoxia - 95% O2 sat on BiPap continuously Chronic Afib Leukopenia - 3.7 Thrombocytopenia - 114 PLAN: Maintain on vapotherm, abx (azithromycin & zosyn), and dexamethasone Maintain comfort Convalescent plasma Monitor labs Appreciate Dr. Adriana croft Appreciate Dr. Kadeem croft CXR indicates improved bilateral infiltrates SISI KONG DO 09/18/20 0538: Subjective Subjective/Events-last exam Pt holding her own but on BiPAP at 100% DNR and Do not incubate maintained Cyanotic when she takes the BiPAP off to have a drink Pt does have a poor prognosis Review of Systems General: Fatigue Pulmonary: Dyspnea Objective Exam General Appearance: No Apparent Distress, WD/WN Respiratory: Decreased Breath Sounds, Wheezing Cardiovascular: Regular Rate, Rhythm Neurologic/Psychiatric: Alert, Oriented x3 Assessment/Plan Assessment and Plan Assess & Plan/Chief Complaint Monitor resp status closely High risk for fatigue and decompensation DNR as she requested Supervisory-Addendum Brief Verification & Attestation Participated in pt care: history, MDM, physical Personally performed: exam, history, MDM, supervision of care Care discussed with: Medical Student Procedures: n/a Results interpretation: Verified all documentation Verification and Attestation of Medical Student E/M Service A medical student performed and documented this service in my presence. I reviewed and verified all information documented by the medical student and made modifications to such information, when appropriate. I personally performed the physical exam and medical decision making. Sisi Kong, Sep 18, 2020,05:37 IVONNE MOORE MED STUDENT Sep 17, 2020 12:15 SISI KONG DO Sep 18, 2020 05:38
[2020-09-17] MEDS ORDERED: NS IV 500 ML 500 ML ONE (13:37)
[2020-09-17] MEDS: AZITHROMYCIN 250 MG TAB (ZITHROMAX) PO SCH (15:47)
--- NOTE | 2020-09-17 17:26 | Physician Query Clarification ---
"Physician Query-General Query to Physician: The medical record reflects the following clinical scenario: The patient, in the setting of History/Risk factors: Covid 19 pos, PNA, Clinical Findings 02 sat 48% on RA, RR consistently above 30, 36 on admission, O2 sat 90% on 100% O2, Requiring continuous BIPAP and 02 at 100%, Proning (if able to tolerate), Breathing RX, Zosyn, Azithromycin, Dexamethasone, Dexmedetomidine, Question: Do you agree with the impression of Acute Hypoxic Respiratory Failure per Dr Monisha Wright? If you agree, please document in Progress Notes or Discharge Summary. 1. Yes; will document Acute Hypoxic Respiratory Failure, present on admission in the Progress Notes 2. No; will continue to document Hypoxia/Respiratory Distress in the Progress Notes 3. Other; will document explanation of clinical findings 4. Clinically undetermined; no explanation for clinical findings Please remember a lack of response to the above will prompt a phone page by CDI/coding staff. In responding to this query, please exercise your independent professional judgment. The purpose of this communication is to more accurately reflect the complexity of your patients condition. The fact that a question is asked does not imply that any particular answer is desired or expected. Thank you for timely response to this clarification. Lay Moore, MSN, RN RN Specialist-Clinical Doc Improvement CD -Health Info Mgmt Operations [address] [facility] t: [phone] | f: [phone] If you are unable to reach me at my extension, I may be working from home. Please contact me at [phone] PHYSICIAN RESPONSE: Based on the clinical findings in the record, please respond to the query above on this document as an addendum. Physician Response: Physician Response 1 If you have questions please contact: Instructional Design Consultant: Ext: Thank you for your time and cooperation. Clinical Rubber Calender Helper/Instructional Design Consultant This is a permanent part of the medical record LAY MOORE Sep 17, 2020 17:26 ISIDRA KONG DO Sep 17, 2020 20:29"
[2020-09-17] MEDS: ACETAMINOPHEN 325 MG TABLET PO PRN (21:28)
[2020-09-18] VITALS (9 sets, daily range): BP systolic 93–128; BP diastolic 58–85
[2020-09-18] MEDS: RT-ALBUTEROL INHALER HFA (VENTOLIN HFA) 18 GM IH SCH ×7 (02:04→22:14)
[2020-09-18] MEDS: ENOXAPARIN 100 MG/1 ML (LOVENOX) SYR SC SCH ×2 (02:38→15:10)
[2020-09-18] MEDS: DexMEDEtomidine 250 ML DRIP 250 ML IV SCH ×2 (02:38→20:37)
[2020-09-18 04:00] LABS: BASOPHILS % (AUTO) 0 % (0-10); EOSINOPHILS % (AUTO) 0 % (0-10); HEMATOCRIT 43 % (35-52); LYMPHOCYTES # (AUTO) 0.3 10^3/uL (1.0-4.0); LYMPHOCYTES % (AUTO) 5 % (12-44); MEAN CORPUSCULAR HEMOGLOBIN 32 pg (25-34); MEAN CORPUSCULAR HGB CONC 35 g/dL (32-36); MEAN CORPUSCULAR VOLUME 90 fL (80-99); MEAN PLATELET VOLUME 10.4 fL (9.0-12.2); MONOCYTES # (AUTO) 0.2 10^3/uL (0.0-1.0); MONOCYTES % (AUTO) 3 % (0-12); NEUTROPHILS # (AUTO) 5.2 10^3/uL (1.8-7.8); NEUTROPHILS % (AUTO) 92 % (42-75); PLATELET COUNT 151 10^3/uL (130-400); WHITE BLOOD COUNT 5.7 10^3/uL (4.3-11.0)
[2020-09-18 04:19] LABS: CHLORIDE 105 MMOL/L (98-107); POTASSIUM 3.5 MMOL/L (3.6-5.0); SODIUM 140 MMOL/L (135-145)
[2020-09-18 04:20] LABS: CALCIUM 8.3 MG/DL (8.5-10.1)
[2020-09-18 04:21] LABS: GLUCOSE 172 MG/DL (70-105)
[2020-09-18] MEDS: PIPERACILLIN/TAZOBACTAM (BULK) 4.5 GM in NS (IVPB) 100 ML IV SCH ×3 (04:21→20:37)
[2020-09-18 04:22] LABS: CARBON DIOXIDE 22 MMOL/L (21-32)
[2020-09-18 04:24] LABS: PHOSPHORUS 1.8 MG/DL (2.3-4.7)
[2020-09-18 04:25] LABS: CREATININE SERUM 0.77 MG/DL (0.60-1.30); GFR ESTIMATED > 60
[2020-09-18 04:26] LABS: BUN/CREATININE RATIO 29
[2020-09-18 04:27] LABS: MAGNESIUM 2.5 MG/DL (1.6-2.4)
[2020-09-18] MEDS ORDERED: POTASSIUM PHOSPHATE INJ 30 MM in NS (IVPB) 250 ML IV ONE (04:45)
--- NOTE | 2020-09-18 04:46 | Pulmonary Progress Note ---
Subjective Time Seen by a Provider: 04:44 Subjective/Events-last exam Pt is still requiring BiPAP. Sepsis Event Evaluation Height, Weight, BMI Height: '" Weight: lbs. oz. kg; 36.00 BMI Method: Focused Exam Lactate Level 09/15/20 12:55: Lactic Acid Level 1.48 09/16/20 06:45: Lactic Acid Level 1.32 Exam Exam Vital Signs Date Time Temp Pulse Resp B/P (MAP) Pulse Ox O2 Delivery O2 Flow Rate FiO2 09/18/20 04:16 88 NIV Bilevel 100 09/18/20 02:38 71 104/57 09/18/20 02:05 73 42 90 100.00 09/18/20 01:00 71 09/17/20 23:59 88 NIV Bilevel 100 09/17/20 23:00 70 36 121/83 (96) 87 NIV Bilevel 100.00 09/17/20 22:00 66 25 114/75 (88) 84 NIV Bilevel 100.00 09/17/20 21:07 68 35 92 100.00 09/17/20 21:00 66 27 114/66 (82) 85 NIV Bilevel 100.00 09/17/20 20:00 61 36 119/76 (90) 88 NIV Bilevel 100.00 09/17/20 19:58 NIV Bilevel 100 09/17/20 19:54 NIV Bilevel 100.00 09/17/20 19:49 36.2 66 24 115/75 (88) 85 Vapotherm 40.00 100.00 09/17/20 19:12 65 34 95 100.00 09/17/20 19:00 60 09/17/20 19:00 58 32 115/75 (88) 93 NIV Bilevel 100.00 09/17/20 18:00 68 30 160/111 (127) 94 NIV Bilevel 100.00 09/17/20 17:00 60 27 123/83 (96) 91 NIV Bilevel 100.00 09/17/20 16:00 92 NIV Bilevel 100 09/17/20 16:00 36.7 09/17/20 16:00 66 33 138/73 (94) 91 NIV Bilevel 100.00 09/17/20 15:00 66 31 130/79 (96) 93 NIV Bilevel 100.00 09/17/20 14:45 65 28 95 100.00 09/17/20 14:35 36.7 70 26 125/77 97 NIV Bilevel 100 09/17/20 14:30 36.8 66 28 130/95 95 NIV Bilevel 100 09/17/20 14:25 36.8 69 26 118/70 96 NIV Bilevel 100 09/17/20 14:20 36.8 61 28 135/93 92 NIV Bilevel 100 09/17/20 14:00 58 28 135/93 (107) 94 NIV Bilevel 100.00 09/17/20 13:00 66 36 96/61 (73) 93 NIV Bilevel 100.00 09/17/20 12:48 NIV Bilevel 100.00 09/17/20 12:32 Vapotherm 40.00 100.00 09/17/20 12:29 70 09/17/20 12:00 63 31 157/122 (134) 93 NIV Bilevel 100.00 09/17/20 12:00 94 NIV Bilevel 100 09/17/20 12:00 36.6 09/17/20 11:00 63 39 112/79 (90) 93 NIV Bilevel 100.00 09/17/20 10:49 65 28 94 100.00 09/17/20 10:00 64 35 165/105 (125) 93 NIV Bilevel 100.00 09/17/20 09:00 58 19 152/103 (119) 95 NIV Bilevel 100.00 09/17/20 08:00 93 NIV Bilevel 100 09/17/20 08:00 59 30 160/91 (114) 91 NIV Bilevel 100.00 09/17/20 07:45 36.4 09/17/20 07:13 59 38 89 100.00 09/17/20 07:00 54 28 153/88 (109) 83 NIV Bilevel 100.00 09/17/20 06:37 54 09/17/20 06:00 101 30 137/88 (97) 87 NIV Bilevel 100.00 09/17/20 05:00 156 28 161/91 (127) 86 NIV Bilevel 100.00 I & O 09/18/20 07:00 Intake Total 1550 ml Output Total 2725 ml Balance -1175 ml Height & Weight Height: '" Weight: lbs. oz. kg; 36.00 BMI Method: General Appearance: WD/WN, Mild Distress HEENT: PERRL/EOMI, Moist Mucous Membranes Neck: Normal Inspection, Supple Respiratory: Chest Non Tender, No Accessory Muscle Use, Crackles, Respiratory Distress, Wheezing Cardiovascular: No Edema, No Gallop, No Murmur, Irregularly Irregular Capillary Refill: Less Than 3 Seconds Extremity: Normal Inspection, Normal Range of Motion, Non Tender, No Calf Tenderness, Pedal Edema (Slighty on left ) Neurologic/Psychiatric: Alert, Oriented x3, No Motor/Sensory Deficits, Normal Mood/Affect Skin: Warm/Dry, Cyanosis, Pallor Lymphatic: No Adenopathy Results Lab Laboratory Tests 09/17/20 04:14 09/18/20 03:00 Assessment/Plan Assessment/Plan acute respiratory failure -BiPAP requiring 100% -Pt is a DNR Acute COVID 19 PNA -CVP is pending -decadron to 10mg IV daily Afib -Hold coumadin -Continue Theraputic dose lovenox KASH JOINER DO Sep 18, 2020 04:46
--- NOTE | 2020-09-18 08:07 | Diagnostic Imaging Report ---
EXAMINATION: Chest radiograph, portable AP view. DATE: 09/18/2020 2:53 AM INDICATION: 75-year-old female, dyspnea. COMPARISON: September 17, 2020. FINDINGS: Heart size and mediastinal contours are unchanged. There is no identified pneumothorax. There is no large pleural effusion. There are bilateral interstitial and/or alveolar opacities which are unchanged. IMPRESSION: 1. Unchanged multifocal bilateral interstitial and/or alveolar opacities. Dictated by: Dictated on workstation # [id number]
[2020-09-18] MEDS: PANTOPRAZOLE 40 MG (PROTONIX) VIAL IV SCH (09:33)
[2020-09-18] MEDS ORDERED: RT-ALBUTEROL INHALER HFA (VENTOLIN HFA) 18 GM IH SCH (12:00)
[2020-09-18] MEDS ORDERED: morphine INJ 10 MG/ML 1ML (SYR OR VIAL) IVP NR (12:10)
[2020-09-18] MEDS ORDERED: LORazepam INJ 2 MG/ML (ATIVAN) VIAL IVP PRN (12:15)
--- NOTE | 2020-09-18 14:18 | Progress Note - Hospitalist ---
IVONNE MOORE MED STUDENT 09/18/20 1418: Subjective HPI/CC On Admission Date Seen by Provider: Sep 18, 2020 Time Seen by Provider: 09:30 CC: COVID-19 PNA with hypoxia HPI: This is a 75yoWF clinic patient of [facility] who had yet to obtain the COVID-19 vaccine due to "wanted to wait to see if there were any side effects" who presented to the ER with N/V and dyspnea and found to have O2 sat of 59%. Her sister had COVID and she spent some time with her last week. Patient feels better on 100" Vapotherm. ICU admit recommended. Patient denies pain. Subjective/Events-last exam Pt is awake and in bed upon entry. Pt appears very tired. Pt is on continuous BiPap use so communication is limited. Pt denies pain but does relay that she is nauseated to the point that she vomited earlier in the morning. Nurse is in the room as well and notes that she will be cleaning up the pt once finished with exam. Review of Systems General: No Chills; Fatigue HEENT: No Head Aches, No Dysphasia Pulmonary: Dyspnea, Cough Cardiovascular: No: Chest Pain, Palpitations Gastrointestinal: Nausea, Vomiting Genitourinary: No Dysuria, No Hematuria Neurological: Weakness; No: Confusion Focused Exam Lactate Level 09/16/20 06:45: Lactic Acid Level 1.32 Objective Exam Vital Signs Vital Signs Date Time Temp Pulse Resp B/P (MAP) Pulse Ox O2 Delivery O2 Flow Rate FiO2 09/18/20 13:00 64 51 121/64 (83) 89 NIV Bilevel 100.00 09/18/20 12:00 100 09/18/20 10:59 36.2 Capillary Refill : Less Than 3 Seconds General Appearance: WD/WN, Mild Distress HEENT: PERRL/EOMI, Moist Mucous Membranes Neck: Normal Inspection, Supple Respiratory: Chest Non Tender, Crackles, Decreased Breath Sounds, Respiratory Distress, Rhonci, Wheezing Cardiovascular: No Edema, No Gallop, No Murmur, Irregularly Irregular Gastrointestinal: Non Tender, Soft Rectal: Deferred Extremity: Non Tender, No Calf Tenderness, No Pedal Edema Neurologic/Psychiatric: Alert, Oriented x3, No Motor/Sensory Deficits, Normal Mood/Affect Skin: Warm/Dry, Cyanosis, Pallor Results/Procedures Lab Laboratory Tests 09/18/20 03:00 Patient resulted labs reviewed. Assessment/Plan Assessment and Plan Assess & Plan/Chief Complaint ASSESSMENT: COVID + Hypoxia - 90% O2 sat on BiPap continuously, RR 50 Chronic Afib Leukopenia - 5.7 Thrombocytopenia - 151 (resolved) PLAN: Maintain on BiPap - pt unable to tolerate not being continuously on it. O2 sats drop to upper 70s/ lower 80s Maintain comfort - consider comfort care Anti-emetics Convalescent plasma transfused yesterday 09/[address] Adriana croft Appreciate SISI Muse DO 09/19/20 0544: Subjective Subjective/Events-last exam Morphine and Ativan ordered Cyanosis severe when she takes mask off Review of Systems General: Fatigue Objective Exam General Appearance: No Apparent Distress, WD/WN, Chronically ill Respiratory: Decreased Breath Sounds Cardiovascular: Regular Rate, Rhythm Neurologic/Psychiatric: Alert, Oriented x3, No Motor/Sensory Deficits, Normal Mood/Affect Assessment/Plan Assessment and Plan Assess & Plan/Chief Complaint Morphine Ativan Supervisory-Addendum Brief Verification & Attestation Participated in pt care: history, MDM, physical Personally performed: exam, history, MDM, supervision of care Care discussed with: Medical Student Procedures: n/a Results interpretation: Verified all documentation Verification and Attestation of Medical Student E/M Service A medical student performed and documented this service in my presence. I reviewed and verified all information documented by the medical student and made modifications to such information, when appropriate. I personally performed the physical exam and medical decision making. Sisi Kong Sep 19, 2020,05:43 IVONNE MOORE MED STUDENT Sep 18, 2020 14:18 SISI KONG DO Sep 19, 2020 05:44
[2020-09-18] MEDS ORDERED: RT-ALBUTEROL SULF 2.5 MG/3 ML PRE-MIX VIAL ONE (14:19)
[2020-09-18] MEDS: AZITHROMYCIN 250 MG TAB (ZITHROMAX) PO SCH (16:40)
[2020-09-18] MEDS: morphine INJ 10 MG/ML 1ML (SYR OR VIAL) IVP PRN ×2 (16:41→20:37)
[2020-09-18] MEDS: morphine INJ 4 MG/ML 1 ML (VIAL/SYRINGE) IVP PRN (22:53)
[2020-09-19 00:09] VITALS: BP 126/60
[2020-09-19] MEDS: RT-ALBUTEROL INHALER HFA (VENTOLIN HFA) 18 GM IH SCH ×3 (00:09→04:06)
[2020-09-19 02:14] VITALS: BP 132/72
[2020-09-19 03:34] LABS: BASOPHILS % (AUTO) 0 % (0-10); EOSINOPHILS % (AUTO) 0 % (0-10); HEMATOCRIT 47 % (35-52); LYMPHOCYTES # (AUTO) 0.4 10^3/uL (1.0-4.0); LYMPHOCYTES % (AUTO) 5 % (12-44); MEAN CORPUSCULAR HEMOGLOBIN 32 pg (25-34); MEAN CORPUSCULAR HGB CONC 34 g/dL (32-36); MEAN CORPUSCULAR VOLUME 93 fL (80-99); MEAN PLATELET VOLUME 10.4 fL (9.0-12.2); MONOCYTES # (AUTO) 0.2 10^3/uL (0.0-1.0); MONOCYTES % (AUTO) 2 % (0-12); NEUTROPHILS # (AUTO) 7.1 10^3/uL (1.8-7.8); NEUTROPHILS % (AUTO) 93 % (42-75); PLATELET COUNT 118 10^3/uL (130-400); WHITE BLOOD COUNT 7.7 10^3/uL (4.3-11.0)
[2020-09-19 03:44] LABS: CHLORIDE 104 MMOL/L (98-107); POTASSIUM 4.4 MMOL/L (3.6-5.0); SODIUM 141 MMOL/L (135-145)
[2020-09-19 03:45] LABS: CALCIUM 8.2 MG/DL (8.5-10.1)
[2020-09-19 03:46] LABS: GLUCOSE 115 MG/DL (70-105)
[2020-09-19 03:47] LABS: CARBON DIOXIDE 26 MMOL/L (21-32)
[2020-09-19 03:50] LABS: CREATININE SERUM 0.74 MG/DL (0.60-1.30); GFR ESTIMATED > 60; PHOSPHORUS 2.2 MG/DL (2.3-4.7)
[2020-09-19 03:51] LABS: BUN/CREATININE RATIO 22
[2020-09-19 03:52] LABS: MAGNESIUM 2.5 MG/DL (1.6-2.4)
[2020-09-19 04:06] VITALS: BP 145/99
[2020-09-19 04:07] LABS: LYMPHOCYTES % (MANUAL) 8 %; MONOCYTES % (MANUAL) 2 %; NEUTROPHILS % (MANUAL) 90 %; PLATELET CLUMPS 0
[2020-09-19 04:08] LABS: RBC MORPH NORMAL
[2020-09-19] MEDS: morphine INJ 4 MG/ML 1 ML (VIAL/SYRINGE) IVP PRN (04:08)
[2020-09-19] MEDS: ENOXAPARIN 100 MG/1 ML (LOVENOX) SYR SC SCH (04:08)
[2020-09-19] MEDS: PIPERACILLIN/TAZOBACTAM (BULK) 4.5 GM in NS (IVPB) 100 ML IV SCH (04:09)
--- NOTE | 2020-09-19 04:28 | Pulmonary Progress Note ---
Subjective Time Seen by a Provider: 04:23 Subjective/Events-last exam Pt is requiring 100% oxygen via BiPAP. Pt's Sp02 in the mid 80's% Sepsis Event Evaluation Height, Weight, BMI Height: '" Weight: lbs. oz. kg; 36.00 BMI Method: Focused Exam Lactate Level 09/16/20 06:45: Lactic Acid Level 1.32 Exam Exam Vital Signs Date Time Temp Pulse Resp B/P (MAP) Pulse Ox O2 Delivery O2 Flow Rate FiO2 09/19/20 04:06 101 44 85 100.00 09/19/20 02:14 82 39 84 100.00 09/19/20 00:09 86 47 85 100.00 09/18/20 23:24 79 NIV Bilevel 100 09/18/20 23:00 68 24 106/78 (87) 80 NIV Bilevel 100.00 09/18/20 22:14 70 35 85 100.00 09/18/20 22:00 68 37 120/60 (80) 81 NIV Bilevel 100.00 09/18/20 21:00 92 37 126/46 (72) 86 NIV Bilevel 100.00 09/18/20 20:37 79 09/18/20 20:14 77 35 84 100.00 09/18/20 20:00 81 45 118/85 (96) 90 NIV Bilevel 100.00 09/18/20 20:00 89 NIV Bilevel 100 09/18/20 19:00 90 09/18/20 19:00 36.7 NIV Bilevel 100.00 09/18/20 19:00 93 38 111/78 (89) 88 NIV Bilevel 100.00 09/18/20 18:00 100 53 93/78 (83) 85 NIV Bilevel 100.00 09/18/20 17:59 93 48 91 100.00 09/18/20 17:00 81 48 104/58 (73) 85 NIV Bilevel 100.00 09/18/20 16:56 104 41 91 100.00 09/18/20 16:00 78 37 134/94 (107) 89 NIV Bilevel 100.00 09/18/20 16:00 92 NIV Bilevel 100 09/18/20 15:00 71 57 126/100 (109) 89 NIV Bilevel 100.00 09/18/20 14:54 75 40 91 100.00 09/18/20 14:00 71 44 126/79 (95) 86 NIV Bilevel 100.00 09/18/20 13:00 64 51 121/64 (83) 89 NIV Bilevel 100.00 09/18/20 12:41 69 09/18/20 12:00 87 NIV Bilevel 100 09/18/20 12:00 68 42 128/74 (92) 89 NIV Bilevel 100.00 09/18/20 11:00 71 56 110/72 (85) 87 NIV Bilevel 100.00 09/18/20 10:59 36.2 68 90 100 09/18/20 10:56 69 32 90 100.00 09/18/20 10:00 71 39 130/84 (99) 81 NIV Bilevel 100.00 09/18/20 09:00 77 38 128/74 (92) 88 NIV Bilevel 100.00 09/18/20 08:44 68 38 90 100.00 09/18/20 08:00 87 NIV Bilevel 100 09/18/20 08:00 66 36 129/75 (93) 86 NIV Bilevel 100.00 09/18/20 07:00 69 41 127/72 (90) 88 NIV Bilevel 100.00 09/18/20 06:43 77 09/18/20 06:00 68 116/84 (95) 88 NIV Bilevel 100.00 09/18/20 05:00 70 119/70 (86) 85 NIV Bilevel 100.00 I & O 09/19/20 07:00 Intake Total 760 ml Output Total 800 ml Balance -40 ml Height & Weight Height: '" Weight: lbs. oz. kg; 36.00 BMI Method: General Appearance: WD/WN, Mild Distress HEENT: PERRL/EOMI, Moist Mucous Membranes Neck: Normal Inspection, Supple Respiratory: Chest Non Tender, Crackles, Decreased Breath Sounds, Respiratory Distress, Rhonci, Wheezing Cardiovascular: No Edema, No Gallop, No Murmur, Irregularly Irregular Capillary Refill: Less Than 3 Seconds Extremity: Non Tender, No Calf Tenderness, No Pedal Edema Neurologic/Psychiatric: Alert, Oriented x3, No Motor/Sensory Deficits, Normal Mood/Affect Skin: Warm/Dry, Cyanosis, Pallor Lymphatic: No Adenopathy Results Lab Laboratory Tests 09/18/20 03:00 3/26/21 03:25 Assessment/Plan Assessment/Plan acute respiratory failure -BiPAP requiring 100% -Pt is a DNR Acute COVID 19 PNA -CVP is pending -decadron to 10mg IV daily Afib -Hold coumadin -Continue Theraputic dose lovenox Pt's prognosis is very poor. I discussed with and explained [employer]. He is going to discuss with other family and call us back. KASH JOINER DO Sep 19, 2020 04:28
[2020-09-19] MEDS ORDERED: LORazepam INJ 2 MG/ML (ATIVAN) VIAL IVP PRN ×2 (04:30→06:15)
--- NOTE | 2020-09-19 06:10 | Progress Note - Hospitalist ---
Subjective HPI/CC On Admission Date Seen by Provider: Sep 19, 2020 CC: COVID-19 PNA with hypoxia HPI: This is a 75yoWF clinic patient of [facility] who had yet to obtain the COVID-19 vaccine due to "wanted to wait to see if there were any side effects" who presented to the ER with N/V and dyspnea and found to have O2 sat of 59%. Her sister had COVID and she spent some time with her last week. Patient feels better on 100" Vapotherm. ICU admit recommended. Patient denies pain. Focused Exam Lactate Level Objective Exam Vital Signs Vital Signs Date Time Temp Pulse Resp B/P (MAP) Pulse Ox O2 Delivery O2 Flow Rate FiO2 09/19/20 06:30 36.2 64 Room Air 09/19/20 06:00 93 24 122/102 (109) 100.00 09/19/20 04:00 100 Capillary Refill : Less Than 3 Seconds Results/Procedures Lab Laboratory Tests 09/19/20 03:25 Patient resulted labs reviewed. Assessment/Plan Assessment and Plan Assess & Plan/Chief Complaint Morphine Ativan Diagnosis/Problems Diagnosis/Problems (1) COVID-19 Status: Acute (2) Hypoxia Status: Acute (3) Respiratory distress Status: Acute (4) Atrial fibrillation ISIDRA KONG DO Sep 19, 2020 06:10
[2020-09-19] MEDS ORDERED: morphine INJ 4 MG/ML 1 ML (VIAL/SYRINGE) IVP PRN (06:15)
--- NOTE | 2020-09-19 08:00 | Diagnostic Imaging Report ---
EXAMINATION: Chest radiograph, portable AP view. DATE: 09/19/2020 4:31 AM INDICATION: 75-year-old female, dyspnea. COMPARISON: September 18, 2020. FINDINGS: Heart size and mediastinal contours are unchanged. There is no identified pneumothorax. There is no large pleural effusion. There are multifocal bilateral interstitial and/or alveolar opacities which are unchanged. IMPRESSION: 1. Unchanged multifocal bilateral interstitial and/or alveolar opacities. Dictated by: Dictated on workstation # [id number]
--- NOTE | 2020-09-19 12:18 | Discharge Summary ---
Discharge Summary Hospital Course Was the Problem List Reviewed?: Yes Problems/Dx: (1) COVID-19 Status: Acute (2) Hypoxia Status: Acute (3) Respiratory distress Status: Acute (4) Atrial fibrillation Hospital Course Date of Admission: Sep 15, 2020 at 14:11 Admission Diagnosis : Family Physician/Provider: Joel Crawley MD Date of Discharge: 09/19/20 Discharge Diagnosis: COVID-19 PNA Hospital Course: Standard course after admitted for COVID-19 PNA with hypoxia. She remained DNR/DNI and ultimately failed biPAP and Vapotherm and . Labs and Pending Lab Test: Laboratory Tests 09/19/20 03:25: White Blood Count 7.7, Red Blood Count 5.02, Hemoglobin 16.0, Hematocrit 47, Mean Corpuscular Volume 93, Mean Corpuscular Hemoglobin 32, Mean Corpuscular Hemoglobin Concent 34, Red Cell Distribution Width 13.0, Platelet Count 118L, Mean Platelet Volume 10.4, Immature Granulocyte % (Auto) 1, Neutrophils (%) (Auto) 93H, Lymphocytes (%) (Auto) 5L, Monocytes (%) (Auto) 2, Eosinophils (%) (Auto) 0, Basophils (%) (Auto) 0, Neutrophils # (Auto) 7.1, Lymphocytes # (Auto) 0.4L, Monocytes # (Auto) 0.2, Eosinophils # (Auto) 0.0, Basophils # (Auto) 0.0, Immature Granulocyte # (Auto) 0.1, Neutrophils % (Manual) 90, Lymphocytes % (Manual) 8, Monocytes % (Manual) 2, Clumped Platelets 0, Blood Morphology Comment NORMAL, Sodium Level 141, Potassium Level 4.4, Chloride Level 104, Carbon Dioxide Level 26, Anion Gap 11, Blood Urea Nitrogen 16, Creatinine 0.74, Estimat Glomerular Filtration Rate > 60, BUN/Creatinine Ratio 22, Glucose Level 115H, Calcium Level 8.2L, Phosphorus Level 2.2L, Magnesium Level 2.5H Microbiology 09/16/20 Influenza Types A,B Antigen (RUSLAN) - Final, Complete 09/16/20 Blood Culture - Preliminary, Resulted No growth Home Meds Active Reported Furosemide 20 Mg Tablet 20 Mg PO DAILY Warfarin Sodium 3 Mg Tablet 3 Mg PO DAILY Hydroxyzine HCl 50 Mg Tablet 50 Mg PO HS PRN Betamethasone Dp Aug 0.05% Crm (Betamethasone/Propylene Glyc) 15 Gm Cream..g. 1 Applic TOP BID PRN Warfarin Sodium 1 Mg Tablet 0.5 Mg PO TUE,FRI TAKES OF A 1MG ALONG WITH 3MG TO EQUAL 3.5MG ON TUE & FRI Cetirizine HCl 10 Mg Tablet 10 Mg PO DAILY Multi-Vitamin Daily (Multivitamin) 1 Each Tablet 1 Each PO DAILY Calcium (Calcium Carbonate) 600 Mg Tablet 600 Mg PO BID Glucosamine (Glucosamine Sulfate 2Kcl) 1,000 Mg Tablet 1,000 Mg PO BID Cartia Xt (Diltiazem HCl) 120 Mg Cap.er.24h 120 Mg PO DAILY Assessment/Pt Instructions Discharge Planning: <30 minutes discharge planning Discharge Physical Examination Vital Signs Vital Signs Date Time Temp Pulse Resp B/P (MAP) Pulse Ox O2 Delivery O2 Flow Rate FiO2 09/19/20 06:30 36.2 64 Room Air 09/19/20 06:00 93 24 122/102 (109) 100.00 09/19/20 04:00 100 Allergies: Coded Allergies: Sulfa (Sulfonamide Antibiotics) (Verified Allergy, Unknown, 09/15/20) Discharge Summary Date of Admission Sep 15, 2020 at 14:11 Date of Discharge Sep 19, 2020 at 10:52 Admission Diagnosis Assessment: COVID-19 PNA Hypoxia severe AF hx HTN Plan: ICU Vapotherm COVID protocol Discharge Diagnosis Morphine Ativan (1) COVID-19 Status: Acute (2) Hypoxia Status: Acute (3) Respiratory distress Status: Acute (4) Atrial fibrillation ISIDRA KONG DO Sep 19, 2020 12:18
== END 2020-09-19 10:52 | disposition expired | DRG 177 ==
LOC: EDUNIT# 12:38 → ER 12:39 → ICU 14:11
PROVIDERS: ADMIT Internal Medicine; ATTEND Internal Medicine
PROC: 5A09457 Assistance with Respiratory Ventilation, 24-96 Consecutive Hours, Continuous Positive Airway Pressure (ICD-10-PCS; 2020-09-15)
PROC: XW13325 Transfusion of Convalescent Plasma (Nonautologous) into Peripheral Vein, Percutaneous Approach, New Technology Group 5 (ICD-10-PCS; principal; 2020-09-17)
DX: U07.1 COVID-19 (principal); J96.01 Acute respiratory failure with hypoxia; J12.82 Pneumonia due to coronavirus disease 2019; I48.20 Chronic atrial fibrillation, unspecified; I10 Essential (primary) hypertension; Z66 Do not resuscitate; Z51.5 Encounter for palliative care; D72.819 Decreased white blood cell count, unspecified; D69.6 Thrombocytopenia, unspecified; E87.6 Hypokalemia; Z79.01 Long term (current) use of anticoagulants; Z88.2 Allergy status to sulfonamides
CPT/HCPCS: 36415; 36600; 71045; 80048; 80053; 81000; 82728; 82805; 83605; 83615; 83735; 83880; 84100; 84145; 84484; 85007; 85025; 85027; 85379; 85384; 85610; 85730; 86141; 86900; 86901; 87040; 87081; 87449; 87635; 87804; 87899; 93005; 94640; 94660